=== PATIENT | female | born 1935 | race Caucasian/White ===

== ENCOUNTER 2016-07-18 17:05 | Inpatient (IN) ==
--- NOTE | 2016-07-18 19:44 | Emergency Department Note ---
Disposition Clinical Impression: Arterial insufficiency of lower extremity, Chronic wound of extremity, Acute on chronic kidney failure Disposition: Admitted As Inpatient Condition: Fair Forms: ED Satisfaction Letter General Adult HPI - General Chief complaint: ED Extremity Problem,Nontraumatic Stated complaint: cellulitis, low oxygen Time Seen by Provider: 07/18/16 19:19 Source: patient, family Mode of arrival: EMS Limitations: no limitations Nursing Notes Reviewed: Yes Vital Signs Reviewed: Yes - History of Present Illness HPI Narrative: 80-year-old female with long-standing history of chronic arterial insufficiency. She has had numerous rounds of outpatient oral antibiotics for cellulitis of bilateral lower extremities. She has had skin sloughing and ulcerations for multiple months according to the outpatient chart. She has seen Dr. Mcginnis on multiple visits to the most recent of which was in April. She is complaining of increasing pain in bilateral lower extremities with the right being worse than the left. She also complains of spreading of the ulcerations. She denies a current fever. She denies any current chest pain or shortness of breath. Radiation: non-radiation Pain Severity: moderate Pain Scale: 8 Consistency: constant Improves with: nothing Worsens with: movement Associated symptoms: Reports: denies other symptoms Treatments Prior to Arrival: none - Related Data Home Medications Medication Instructions Recorded Confirmed Albuterol Sulfate [Proair Hfa] 2 puff IH QID PRN 07/18/16 Amiodarone [Cordarone] 200 mg PO DAILY 07/18/16 07/18/16 Beclomethasone Diprop 80mcg [Qvar 1 puff IH BID 07/18/16 80 mcg] Clopidogrel [Plavix] 75 mg PO DAILY 07/18/16 07/18/16 Furosemide [Lasix] 80 mg PO DAILY 07/18/16 07/18/16 Metolazone [Zaroxolyn] 5 mg PO DAILY PRN 07/18/16 07/18/16 Metoprolol [Lopressor] 100 mg PO BID 07/18/16 07/18/16 Tramadol HCl [Ultram] 50 mg PO BID 07/18/16 07/18/16 Allergies Allergy/AdvReac Type Severity Reaction Status Date / Time No Known Allergies Allergy Unverified 02/25/15 15:26 All systems ED: reviewed and negative except as stated. Constitutional: Denies: fever Eyes: Denies: vision change ENT ED: Denies: throat pain Cardiovascular: Denies: chest pain Respiratory: Denies: cough Gastrointestinal: Denies: abdominal pain Genitourinary: Denies: dysuria Musculoskeletal: Denies: back pain Integumentary: Denies: rash Neurological: Denies: headache Past Medical History - Past Medical History Medical history: Reports: asthma, CHF, hyperlipidemia, hypertension, renal disease Psychiatric history: Reports: no psych history - Social History Smoking Status: Former smoker Smokeless Tobacco Status: No Alcohol use: Reports: none Drug use: Reports: none Physical Exam - General Limitations: no limitations General appearance: alert, in no apparent distress - Head Head exam: atraumatic - Eye Eye exam: Present: normal appearance - ENT ENT exam: normal exam, normal oropharynx - Neck Neck exam: Present: normal inspection - Chest Chest inspection: Present: normal inspection - Respiratory Respiratory exam: Present: normal lung sounds bilaterally. Absent: respiratory distress - Cardiovascular Cardiovascular exam: Present: regular rate, normal rhythm - Abdominal Exam Abdominal exam: Present: soft, Non-Tender - Extremities Exam Extremities exam: Present: other (Bilateral lower extremities are warm to the touch with cyanosis and erythema. Cyanosis is distal and erythema is proximal. The erythema goes proximally to the level of the mid calf. Cyanosis is mostly confined to the feet. There is diffuse ulcerations and blisters with sloughing. The right is warm to the touch. Both are boggy and neither are cold. Dorsal pedal pulse is not currently palpable.) - Neurological Exam Neurological exam: Present: alert, oriented X3 - Skin Skin exam: Present: warm, dry Course Course Narrative: My concern is that her cellulitis is not been responsive to outpatient therapy as she has such limited perfusion of her lower extremities. I have gone ahead and ordered an DEE DEE and we will go ahead and start antibiotics after I received her creatinine level. She will likely need admission with IV antibiotics and surgery or vascular consultation. She is afebrile and vital signs are otherwise unremarkable. - Reevaluation(s) Reevaluation #1: DEE DEE completely normal according to tech. Will admit for cellulitis and [facility]. Vital Signs Temperature 97.2 F L 07/18/16 17:17 Pulse Rate 99 07/18/16 17:17 Respiratory Rate 16 07/18/16 17:17 Blood Pressure 110/62 07/18/16 17:17 O2 Sat by Pulse Oximetry 97 07/18/16 17:17 Temperature 97.2 F L 07/18/16 17:17 Pulse Rate 99 07/18/16 17:17 Respiratory Rate 16 07/18/16 17:17 Blood Pressure 110/62 07/18/16 17:17 O2 Sat by Pulse Oximetry 97 07/18/16 17:17 Oxygen Delivery Oxygen Delivery Room Air Medical Decision Making - Medical Records Medical records reviewed: Yes I reviewed the patient's medical records. - Lab Data Lab results reviewed: Yes I reviewed the patient's lab results.
[2016-07-18] MEDS ORDERED: *HR* Morphine 2 MG/ML SYRINGE IV ONE (19:50)
[2016-07-18] MEDS ORDERED: Ondansetron 4 MG/2 ML VIAL IVP ONE (19:51)
[2016-07-18 20:00] LABS: Basophils % 0.5 %; Eosinophils # 0.2 K/mcL (0.0-0.6); Eosinophils % 3.6 %; Hematocrit 49.4 % (35.3-44.9); Hemoglobin 15.6 g/dL (11.5-15.4); Immature Granulocytes % 0.7 % (0-4); Immature Platelets 5.5 % (1.1-6.1); Lymphocytes % 16.6 %; Mean Corpuscular HGB Conc 31.6 g/dL (31.6-35.5); Mean Corpuscular Hemoglobin 29.9 pg (28.0-33.3); Mean Corpuscular Volume 94.8 fL (83.0-100.0); Mean Platelet Volume 11.4 fL (9.4-12.4); Monocytes # 0.7 K/mcL (0.0-1.3); Monocytes % 11.1 %; Neutrophils # 4.1 K/mcL (1.6-8.9); Nucleated Red Blood Cells 0.8 /100 WBC (0); Red Blood Count 5.21 M/mcL (3.82-4.97); Red Cell Distribution Width 17.9 % (11.5-14.5); Segmented Neutrophils % 67.5 %
[2016-07-18 20:07] LABS: Calcium 9.6 mg/dL (8.6-10.8); Potassium 4.1 mEq/L (3.5-4.5)
[2016-07-18] MEDS ORDERED: 0.9 % Sodium Chloride 500 ML IVC ONE (20:11)
[2016-07-18 20:17] LABS: Platelet Count 93 K/mcL (140-400)
[2016-07-18] MEDS ORDERED: Vancomycin 1,000 MG in D5% in Water 250 ML IVPB ONE (20:21)
[2016-07-18] MEDS ORDERED: Levofloxacin 750 MG/150 ML 750 MG/150 ML BAG IVPB ONE (20:21)
--- NOTE | 2016-07-18 20:34 | Emergency Department Note ---
Disposition Clinical Impression: Arterial insufficiency of lower extremity, Chronic wound of extremity, Acute on chronic kidney failure Disposition: Admitted As Inpatient Condition: Fair General Adult HPI - General Chief complaint: ED Extremity Problem,Nontraumatic Stated complaint: cellulitis, low oxygen Time Seen by Provider: 07/18/16 19:19 Source: patient, family Mode of arrival: EMS Limitations: no limitations - History of Present Illness Pain Scale: 8 Improves with: nothing Worsens with: movement Associated symptoms: Reports: denies other symptoms Treatments Prior to Arrival: none - Related Data Home Medications Medication Instructions Recorded Confirmed Albuterol Sulfate [Proair Hfa] 2 puff IH QID PRN 07/18/16 Amiodarone [Cordarone] 200 mg PO DAILY 07/18/16 07/18/16 Beclomethasone Diprop 80mcg [Qvar 1 puff IH BID 07/18/16 80 mcg] Furosemide [Lasix] 80 mg PO DAILY 07/18/16 07/18/16 Metolazone [Zaroxolyn] 5 mg PO DAILY PRN 07/18/16 07/18/16 Metoprolol [Lopressor] 100 mg PO BID 07/18/16 07/18/16 Tramadol HCl [Ultram] 50 mg PO BID 07/18/16 07/18/16 Aspirin [Ecotrin] 325 mg PO DAILY 07/19/16 07/19/16 Allergies Allergy/AdvReac Type Severity Reaction Status Date / Time No Known Allergies Allergy Unverified 02/25/15 15:26 Constitutional: Denies: fever Eyes: Denies: vision change ENT ED: Denies: throat pain Cardiovascular: Denies: chest pain Respiratory: Denies: cough Gastrointestinal: Denies: abdominal pain Genitourinary: Denies: dysuria Musculoskeletal: Denies: back pain Integumentary: Denies: rash Neurological: Denies: headache Past Medical History - Past Medical History Medical history: Reports: asthma, CHF, hyperlipidemia, hypertension, renal disease Psychiatric history: Reports: no psych history - Social History Smoking Status: Former smoker Smokeless Tobacco Status: No Alcohol use: Reports: none Drug use: Reports: none Physical Exam - General Limitations: no limitations General appearance: alert, in no apparent distress Course - Reevaluation(s) Reevaluation #1: I saw the patient with the resident, Dr. Avelar. Patient presents with redness and pain to bilateral lower extremities. On exam she has got bad cellulitis up and down the legs. She was anxious sent in by her PCP who has had her on oral antibiotics at home but she clearly is failing outpatient treatment. Further examination of the legs indicate to me that there is a significant arterial vascular insufficiency issue. This is known by the family and the patient but according to the family the patient has resisted definitive management thus far. She needs to be admitted the hospital for IV antibiotics because of failure of outpatient treatment of the cellulitis. This is obviously due to the vascular insufficiency. She will need to have that issue addressed while she is here in the hospital as well. Time: 20:34 Vital Signs Temperature 97.2 F L 07/18/16 17:17 Pulse Rate 99 07/18/16 17:17 Respiratory Rate 16 07/18/16 17:17 Blood Pressure 110/62 07/18/16 17:17 O2 Sat by Pulse Oximetry 97 07/18/16 17:17 Temperature 97.4 F L 07/20/16 10:50 Pulse Rate 78 07/20/16 10:50 Respiratory Rate 17 07/20/16 10:50 Blood Pressure 106/86 07/20/16 10:50 O2 Sat by Pulse Oximetry 98 07/20/16 10:50 Oxygen Delivery Oxygen Delivery Room Air Medical Decision Making - Lab Data Result diagrams: 07/20/16 05:45 07/20/16 05:45 Lab Results 07/18/16 07/18/16 07/18/16 Range/Units 19:40 19:40 19:40 WBC 6.1 (4.3-11.1) K/mcL RBC 5.21 H (3.82-4.97) M/mcL Hgb 15.6 H (11.5-15.4) g/dL Hct 49.4 H (35.3-44.9) % MCV 94.8 (83.0-100.0) fL MCH 29.9 (28.0-33.3) pg MCHC 31.6 (31.6-35.5) g/dL RDW 17.9 H (11.5-14.5) % Plt Count 93 L (140-400) K/mcL MPV 11.4 (9.4-12.4) fL Immature Gran % 0.7 (0-4) % Seg Neutrophils % 67.5 % Lymphocytes % 16.6 % Monocytes % 11.1 % Eosinophils % 3.6 % Basophils % 0.5 % Neutrophils # 4.1 (1.6-8.9) K/mcL Lymphocytes # 1.0 (0.6-4.6) K/mcL Monocytes # 0.7 (0.0-1.3) K/mcL Eosinophils # 0.2 (0.0-0.6) K/mcL Basophils # 0.0 (0.0-0.2) K/mcL Nucleated RBCs/100 WBC 0.8 H (0) /100 WBC Immature Plt Fraction 5.5 (1.1-6.1) % Sodium 143 (136-145) mEq/L Potassium 4.1 (3.5-4.5) mEq/L Chloride 102 (98-109) mEq/L Carbon Dioxide 26 (19-29) mEq/L BUN 65 H (7-20) mg/dL Creatinine 3.34 H (0.57-1.11) mg/dL Est GFR ( Amer) 16 L (> 60) Est GFR (Non-Af Amer) 13 L (> 60) BUN/Creatinine Ratio 19 (6-26) Glucose 121 H (70-99) mg/dL Calculated Osmolality 316 H (280-300) Lactic Acid 1.8 (0.5-2.2) mmol/L Calcium 9.6 (8.6-10.8) mg/dL Creatine Kinase (29-168) Units/L 07/18/16 Range/Units 21:40 WBC (4.3-11.1) K/mcL RBC (3.82-4.97) M/mcL Hgb (11.5-15.4) g/dL Hct (35.3-44.9) % MCV (83.0-100.0) fL MCH (28.0-33.3) pg MCHC (31.6-35.5) g/dL RDW (11.5-14.5) % Plt Count (140-400) K/mcL MPV (9.4-12.4) fL Immature Gran % (0-4) % Seg Neutrophils % % Lymphocytes % % Monocytes % % Eosinophils % % Basophils % % Neutrophils # (1.6-8.9) K/mcL Lymphocytes # (0.6-4.6) K/mcL Monocytes # (0.0-1.3) K/mcL Eosinophils # (0.0-0.6) K/mcL Basophils # (0.0-0.2) K/mcL Nucleated RBCs/100 WBC (0) /100 WBC Immature Plt Fraction (1.1-6.1) % Sodium (136-145) mEq/L Potassium (3.5-4.5) mEq/L Chloride (98-109) mEq/L Carbon Dioxide (19-29) mEq/L BUN (7-20) mg/dL Creatinine (0.57-1.11) mg/dL Est GFR ( Amer) (> 60) Est GFR (Non-Af Amer) (> 60) BUN/Creatinine Ratio (6-26) Glucose (70-99) mg/dL Calculated Osmolality (280-300) Lactic Acid (0.5-2.2) mmol/L Calcium (8.6-10.8) mg/dL Creatine Kinase 56 (29-168) Units/L Attestation Statement - Attestation Attestation: I, Dr. Hinkle, examined this patient [id number] and my medical decision- making was reviewed with Dr. Avelar, Resident Physician. I agree with the documented findings, disposition and treatment plan as described except to the extent set forth below. Please see my progress notes for details.
[2016-07-19] MEDS ORDERED: Naloxone 0.4 MG/ML INJ IVP PRN (00:40)
--- NOTE | 2016-07-19 01:14 | Internal Med History&Physical ---
Date of Encounter: 07/19/16 Time of Encounter: 00:35 Assessment and Plan (1) Acute on chronic kidney failure Current visit: Yes Status: Acute 1. Pt looks very dry clinically. 2. I will hold her diuretics. 3. I will hydrate her with IVF. 4. I will order renal ultrasound. 5. Consult nephrology. (2) Tricuspid valve regurgitation Current visit: Yes Status: Chronic 1. I suspect much/all of her lower extremity edema problems are due to sere TR with resultant right heart/atrial failure. 2. Will order ECHO. 3. Consider Cardiology consult if hospital course dictates. 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 I'm not sure what patient's baseline state is at home. 2. Nursing staff report that patient has history of dementia. 3. Patient also received Morphine in ER which may exacerbate symptoms. 4. Hold mind-altering mediations and try to address with family in the morning. 5. May also related to uremia/kidney failure. (4) Chronic wound of extremity Current visit: Yes Status: Chronic 1. I'm not convinced patient has cellulitis. 2. Will follow blood cultures and continue antibiotics for now. 3. Stop Vancomycin. I will treat with Zyvox and Zosyn for now. 4. Consult wound care. (5) DVT prophylaxis Current visit: Yes Status: Acute 1. Heparin SQ. Internal Medicine - H&P: HPI Chief complaint: BLE cellulitis -- not improving Admitted From: Emergency Dept Plans for Post Hospital Care: Home History of present illness: Ms. Beach is a 80 year old female who was brought in to the ER by her family after being referred by her PCP. Patient reportedly has been treated off and on for bilateral cellulitis without improvement for several weeks. She therefore came to the ER for evaluation and workup. In the ER, patient was noted to have bilateral lower extremity edema with purple/cyanotic feet. There was concern that she had ischemic feet, so DEE DEE's were performed. They were normal on preliminary reading as noted by ER staff. Blood cultures were drawn, patient received antibiotics, and she was subsequently admitted to the hospitalist service. Upon my assessment of the patient, she is confused, disoriented, hallucinating ( auditory), and also hard of hearing. I am unable to obtain any history from patient. Her family left from the ER and no family members are present. I reviewed old records and ER notes. Pt has a h/o CKD, and she also has h/o severe tricuspid regurgitation. According to old cardiology notes and [facility] notes (~ 2years ago), she was due to have Tricuspid Valve surgery/replacement. I see no records of such surgery and she does not have a sternotomy scar on exam. Thus, I suspect she did not have such surgery, unless it was done via heart catheterization. Pt is unable to provide history. Based upon these findings and history, I suspect patient has chronic right heart failure leading to hepatic congestion and lower extremity venous insufficiency and edema. Past Med Surg Social Fam HX - Past Medical History Source: old records reviewed Medical history: arthritis, asthma, CHF (right sided due to severe tricuspid regurgitation), hyperlipidemia, hypertension, renal disease Psychiatric history: anxiety, depression - Past Surgical History Surgical History: cholecystectomy - Social History Smoking Status: Former smoker Smokeless Tobacco Status: No Alcohol use: none Drug use: none Current living situation: Home, With Family - Family History Mother Family Member Ethnicity: Non- Living Status: Age at : 72 Cause of : cancer Hx Family Cancer: Yes Father Living Status: Age at : 70 Cause of : cirrhosis Internal Medicine - H&P: Meds Albuterol Sulfate [Proair Hfa] 2 puff IH QID PRN 07/18/16 [History] Amiodarone [Cordarone] 200 mg PO DAILY 07/18/16 [History] Beclomethasone Diprop 80mcg [Qvar 80 mcg] 1 puff IH BID 07/18/16 [History] Clopidogrel [Plavix] 75 mg PO DAILY 07/18/16 [History] Furosemide [Lasix] 80 mg PO DAILY 07/18/16 [History] Metolazone [Zaroxolyn] 5 mg PO DAILY PRN 07/18/16 [History] Metoprolol [Lopressor] 100 mg PO BID 07/18/16 [History] Tramadol HCl [Ultram] 50 mg PO BID 07/18/16 [History] Allergies No Known Allergies Allergy (Unverified 02/25/15 15:26) ROS unobtainable: due to mental status - Constitutional Vitals: Temp Pulse Resp BP Pulse Ox 97.7 F 66 16 137/54 94 L 07/18/16 23:37 07/18/16 23:37 07/18/16 23:37 07/18/16 23:37 07/18/16 23:37 General appearance: Present: A&O X 0, disheveled. Absent: answers questions appropriately Exam: pt looks very dehydrated - Head Head exam: Present: atraumatic, normal inspection - Expanded Head Exam Head exam expanded: Absent: abrasion, contusion, general tenderness - Eye Eye exam: Present: EOMI, normal appearance, PERRL. Absent: scleral icterus Pupils: Present: normal accommodation - ENT ENT exam: Present: mucous membranes dry, normal exam - Neck Neck exam general surgery: Present: full ROM, supple. Absent: lymphadenopathy, tenderness - Expanded Neck Exam Neck exam: Absent: carotid bruit - Respiratory Respiratory exam: Present: CTAB. Absent: accessory muscle use, chest wall tenderness, rales, rhonchi, wheezes - Cardiovascular Cardiovascular exam: Present: bradycardia (HR 50's - 60's), distant heart sounds , RRR, +S1, +S2, systolic murmur (grade II). Absent: diastolic murmur, JVD, rubs - GI/Abdominal GI/Abdominal exam: Absent: guarding, hepatomegaly, mass, rebound, splenomegaly, tenderness - Extremities Exam Extremities exam: Present: pedal edema, warm. Absent: joint swelling Additional comments: bilateral lower extremity edema, purplish hue to feet, blistering of skin ( pretibial area), 1+ pulses palpated in both feet - Neurological Exam Neurological exam: Present: altered Additional comments: hard of hearing; moves all four extremities; unable to assess due to confusion and hallucinations - Psychiatric Psychiatric exam: Present: agitated Additional comments: +auditory hallucinations; confusion; disorientation - Skin Skin exam: Present: dry, warm Additional comments: blue/purple feet with pretibial skin breakdown Internal Med - H&P Results - Labs CBC & Chem 7: 07/18/16 19:40 07/18/16 19:40
[2016-07-19] MEDS: 0.9 % Sodium Chloride 1,000 ML IVC SCH ×2 (01:41→12:56)
[2016-07-19] MEDS: Piperacillin/Tazobactam 3.375 GM in D5% in Water (Mini-Bag+) 100 ML IVPB SCH ×2 (05:24→17:53)
[2016-07-19 05:57] LABS: INR 1.4; Prothrombin Time 14.8 Seconds (9.4-12.1)
[2016-07-19 05:58] LABS: Basophils % 0.2 %; Eosinophils % 0.7 %
[2016-07-19 05:59] LABS: Eosinophils # 0.1 K/mcL (0.0-0.6); Hematocrit 50.6 % (35.3-44.9); Hemoglobin 15.8 g/dL (11.5-15.4); Immature Granulocytes % 0.5 % (0-4); Immature Platelets 4.8 % (1.1-6.1); Lymphocytes % 5.5 %; Mean Corpuscular HGB Conc 31.2 g/dL (31.6-35.5); Mean Corpuscular Hemoglobin 29.8 pg (28.0-33.3); Mean Corpuscular Volume 95.3 fL (83.0-100.0); Mean Platelet Volume 10.6 fL (9.4-12.4); Monocytes # 0.9 K/mcL (0.0-1.3); Monocytes % 6.9 %; Neutrophils # 11.7 K/mcL (1.6-8.9); Nucleated Red Blood Cells 0.6 /100 WBC (0); Red Blood Count 5.31 M/mcL (3.82-4.97); Segmented Neutrophils % 86.2 %
[2016-07-19 06:00] LABS: Lymphocytes # 0.8 K/mcL (0.6-4.6); Platelet Count 92 K/mcL (140-400)
[2016-07-19 06:24] LABS: Albumin 2.9 g/dL (3.5-5.0); Albumin/Globulin Ratio 0.7 (1.1-2.2); Bilirubin,Total 2.4 mg/dL (0.2-1.2); Calcium 9.2 mg/dL (8.6-10.8); Globulin 3.9 g/dL (2.4-3.5); Potassium 4.1 mEq/L (3.5-4.5); Total Protein 6.8 g/dL (6.0-8.3)
[2016-07-19] MEDS: *HR* Heparin 5,000 UNIT/ML VIAL SQ SCH ×2 (08:46→17:54)
[2016-07-19] MEDS: *HR* Amiodarone 200 MG TABLET PO SCH (08:47)
--- NOTE | 2016-07-19 11:30 | Nephrology Consult Note ---
<Alycia Almanzar - Last Filed: 07/19/16 16:23> Date of Encounter: 07/19/16 Time of Encounter: 11:30 Assessment and Plan (1) Acute kidney injury superimposed on chronic kidney disease Current Visit: Yes Status: Acute Patient with a baseline stage IV chronic kidney disease, baseline GFR approximately 30. Serum creatinine on admission 3.34. Clinically, patient appears dehydrated and unkept. Upon review of ECW, patient has had several rounds of antibiotics for outpatient treatment of cellulitis as well as episodes of hypotension. All of these underlying factors most likely etiology for the patient's current acute kidney injury. Serum uric acid 12.5, CK 169, FeUrea indicating prerenal etiology. Agree with gentle IV fluid rehydration. Continue a renal protective strategy and avoid nephrotoxic agents. Lasix discontinued at this time. Pharmacy to dose vancomycin. MRSA screen negative, consider stopping Vanc when possible. (2) Acute metabolic encephalopathy Current Visit: Yes Status: Acute (3) Chronic wound of extremity Current Visit: Yes Status: Chronic (4) Tricuspid valve regurgitation Current Visit: Yes Status: Chronic Qualifiers: Cardiac valve disease etiology: etiology unspecified Qualified Code(s): I07.1 - Rheumatic tricuspid insufficiency History of Present Illness - Reason for Consult Consult date: 07/19/16 Acute Kidney Injury, Chronic Kidney Disease Requesting physician: Chad Zamora - Chief Complaint AURORA on CKD stage IV - History of Present Illness Ms. Beach is a 80-year-old female with a past medical history of chronic kidney disease stage IV, severe tricuspid regurgitation, coronary artery disease , hyperlipidemia, hypertension, and congestive heart failure with preserved ejection fraction who presented to the emergency department at the request of her PCP for possible lower extremity cellulitis. Per report, patient has been treated off and on for bilateral lower extremity cellulitis without improvement for quite some time. Workup in the emergency department included ABIs which were within normal limits, and labs which revealed an acute kidney injury with a serum creatinine of 3.34. Patient was admitted for acute on chronic kidney disease, acute metabolic encephalopathy, and lower extremity cellulitis. Patient does have a history of chronic kidney disease stage IV and follows with Dr. Ramos in the outpatient setting. Her baseline GFR is approximately 30. Upon my assessment of the patient she does appear slightly confused although I am unsure of her baseline mental status. She is really unable to provide an accurate history and there is no family at the bedside at this time. She is currently being treated with vancomycin and Zosyn for her bilateral lower extremity cellulitis. Past Med Surg Social Fam HX - Past Medical History Medical history: arthritis, asthma, CHF (right sided due to severe tricuspid regurgitation), hyperlipidemia, hypertension, renal disease Psychiatric history: anxiety, depression - Past Surgical History Surgical History: cholecystectomy - Social History Smoking Status: Former smoker Smokeless Tobacco Status: No Alcohol use: none Drug use: none - Family History Mother Family Member Ethnicity: Non- Living Status: Age at : 70 Cause of : cancer Hx Family Cancer: Yes Father Living Status: Age at : 70 Cause of : cirrhosis Medications and Allergies Albuterol Sulfate [Proair Hfa] 2 puff IH QID PRN 07/18/16 [History] Amiodarone [Cordarone] 200 mg PO DAILY 07/18/16 [History] Beclomethasone Diprop 80mcg [Qvar 80 mcg] 1 puff IH BID 07/18/16 [History] Furosemide [Lasix] 80 mg PO DAILY 07/18/16 [History] Metolazone [Zaroxolyn] 5 mg PO DAILY PRN 07/18/16 [History] Metoprolol [Lopressor] 100 mg PO BID 07/18/16 [History] Tramadol HCl [Ultram] 50 mg PO BID 07/18/16 [History] Aspirin [Ecotrin] 325 mg PO DAILY 07/19/16 [History] Allergies No Known Allergies Allergy (Unverified 02/25/15 15:26) Review of Systems ROS unobtainable: due to mental status Exam - Vital Signs Vital signs: Initial Vital Signs Temp Pulse Resp BP Pulse Ox 97.2 F L 99 16 110/62 97 07/18/16 17:17 07/18/16 17:17 07/18/16 17:17 07/18/16 17:17 07/18/16 17:17 Vital Signs - Last 8 Hours Temp Pulse Resp BP Pulse Ox 07/19/16 07:00 97.5 F L 50 16 109/67 95 07/19/16 04:07 97.0 F L 51 14 118/63 98 Intake and Output 07/18/16 07/19/16 07/19/16 23:59 07:59 15:59 Intake Total 300 / 300 644 / 644 Balance 300 / 300 644 / 644 Intake: IV Fluids 300 / 300 644 / 644 0.9 % Sodium Chloride 1, 644 / 644 000 ML @ 100 mls/hr IVC . Q10H [facility] Rx#:[id number] Zyvox 600mg/300mL 600 mg 300 / 300 In 300 ml @ 150 mls/hr IVPB Q12HR [facility] Rx#: [id number] Oral 0 / 0 - General Appearance Exam: General: Patient is alert and in no acute distress, confused, appears dehydrated HEENT: Normocephalic atraumatic, pupils are equal round and reactive to light and accommodation, tympanic membrane is intact, nares is patent, mucous membranes dry, throat is not injected, no JVD, trachea is midline Cardiovascular: Regular rate and rhythm, grade 2 systolic murmur noted Respiratory: Lungs are clear to auscultation bilaterally, no wheezing, rhonchi, rales Abdomen: Soft, nontender, nondistended, positive bowel sounds in all 4 quadrants Extremities: Bilateral lower extremity edema, chronic venous stasis changes noted, pretibial blistering of skin with multiple areas of scabbing Neuro: Nonfocal exam Results - Lab Results 07/19/16 05:35 07/19/16 05:35 Most recent lab results Calcium 9.2 mg/dL (8.6-10.8) 07/19/16 05:35 Magnesium 2.0 mg/dL (1.6-2.6) 07/19/16 05:35 Consult Discharge Plan - Plan Referrals: Maulik Handley MD [Primary Care Provider] - <Julio C Nogueira - Last Filed: 07/20/16 23:57> Date of Encounter: 07/19/16 Exam - Vital Signs Vital signs: Initial Vital Signs Temp Pulse Resp BP Pulse Ox 97.2 F L 99 16 110/62 97 07/18/16 17:17 07/18/16 17:17 07/18/16 17:17 07/18/16 17:17 07/18/16 17:17 Vital Signs - Last 8 Hours Temp Pulse Resp BP Pulse Ox 07/20/16 21:18 97.4 F L 50 14 97/64 95 Intake and Output 02/08/0407/20/16 07/20/16 07:59 15:59 23:59 Intake Total 1449 / 1449 1220 / 1220 360 / 360 Output Total 0 / 0 Balance 1449 / 1449 1220 / 1220 360 / 360 Intake: IV Fluids 1049 / 1049 1100 / 1100 0.9 % Sodium Chloride 1, 799 / 799 1000 / 1000 000 ML @ 100 mls/hr IVC . Q10H [facility] Rx#:[id number] Zosyn 3.375 GM In 100 / 100 Dextrose 5% (Minibag+) 100 ML 100 ML @ 25 mls/hr IVPB Q12HR [facility] Rx#: [id number] Vancocin 1,250 MG In 250 / 250 Dextrose 5% 250 ML @ 166. 67 mls/hr IVPB ONCE ONE Rx#:[id number] Oral 400 / 400 120 / 120 360 / 360 Output: Urine 0 / 0 Other: Meal Lunch Dinner Percent of Meal Consumed 50% 75% # Voids 1 # Urine Diapers 0 Results - Lab Results 07/20/16 05:45 07/20/16 05:45 Most recent lab results Calcium 8.6 mg/dL (8.6-10.8) 07/20/16 05:45 Magnesium 2.4 mg/dL (1.6-2.6) 07/20/16 05:45 Urine Creatinine 98 mg/dL 07/19/16 11:58 Urine Sodium < 20.0 mEq/L 07/19/16 11:58 - Attending Attestation I examined this patient and my medical decision-making was reviewed with the QUALIFICATION ENGINEER/PA/Advanced Practice Nurse/Resident Physician. I agree with the documented findings, disposition and treatment plan as described except to the extent set forth below. Pt seen and examined known to me from outpatient followup on her stage 3/4 CKD now admitted with AURORA on diuretics likely pre-renal. Agree with plan as set forth.
[2016-07-19 11:47] LABS: Uric Acid 12.5 mg/dL (2.6-6.0)
--- NOTE | 2016-07-19 11:54 | ECHO - Doppler Report ---
Echocardiogram Name: Marina Beach Date of Study: 07/19/2016 Date: 1935 Ht: 62.0 in Medical Record#: [id number] Age: 80 Wt: 211.0 lb Gender: Female BSA: 1.96 Order #: [id number] Location: [facility] Room #: 3A47 Reading Physician: Nathaniel Hare DO, ROSALEE, MUNDO CHOI Sanding Machine Operator Or Tender: Krystal Villagran Ordering Physician: Chad Zamora MD Primary Physician: Maulik Handley M.D. Indications: Arrhythmia Impressions: LVEF 60%. Small LV chamber size. Normal LV wall thickness and function. Mild left ventricular diastolic dysfunction. Atypical septal motion consistent with bundle branch block. Interventricular septum is flattened suggestive of RV pressure-volume overload. Severely dilated right ventricle with normal appearing function. Severely dilated right atrium. Poor coaptation of tricuspid valve leaflets with resultant severe tricuspid regurgitation. Moderate pulmonary hypertension. Estimated RVSP is 45-50 mmHg. Presumed RA pressure is 15-20 mmHg. Patient refused to complete full examination. Left Ventricular Wall Motion: Rest Echo Findings All wall segments showed normal motion. Findings: Study Quality * Technically sub-optimal due to clinical status. ECG Findings * Sinus rhythm with BBB. Left Ventricle * LVEF 60%. * Small LV chamber size. Normal LV wall thickness and function. * Mild left ventricular diastolic dysfunction. * Atypical septal motion consistent with bundle branch block. * Interventricular septum is flattened suggestive of RV pressure-volume overload. Right Ventricle * Severly dilated right ventricle with normal appearing function. Left Atrium * Normal left atrial size. Right Atrium * Severely dilated right atrium. Interatrial Septum * Interatrial septum not well evaluated. Aortic Valve * Mildly sclerotic aortic valve leaflets. * No aortic stenosis. * Trileaflet aortic valve. * No aortic regurgitation. Mitral Valve * Normal mitral valve structure and function. * No mitral stenosis. * Trace mitral regurgitation. Tricuspid Valve * Normal tricuspid valve structure. * Severe tricuspid regurgitation. * Moderate pulmonary hypertension. * Estimated RVSP is 45-50 mmHg. * Estimated RA pressure is 15-20 mmHg. Pulmonic Valve * Pulmonic valve is not well visualized. * No pulmonic regurgitation. Aorta * Normally sized aortic root. Pericardium * The pericardium appears normal. IVC * The IVC is not well evaluated. Pulmonary Artery * Normal visualized portions of the main pulmonary artery. History Hypertension Hypercholesteremia Congestive Heart Failure Valvular Disease 11/19/2014 a Previous Echo was performed. Measurements: BP: 118/ 63 2D Normal Values RVIDd: 5.80 cm <2.7 cm IVSd: 1.10 cm 0.6 - 1.0 cm LVIDd: 2.70 cm 3.7 - 5.6 cm LVPWd: 1.10 cm 0.6 - 1.1 cm LVIDs: 1.60 cm 1.5 - 3.6 cm AO: 2.90 cm < 4.0 cm LA: 3.00 cm 2.0 - 4.0cm %FS: 40.70 cm >25 % LA volume: 43 Mitral Valve Peak E:.72 m/sec Peak A:.81 m/sec E/A Ratio:0.9 Peak E' Lat Lauro:7.12 cm/s Peak E' Med Lauro:6.24 cm/s E/E' Lat Ratio:10.1 E/E' Med Ratio:11.6 Tricuspid Valve TV Regurg Peak Grad: 30.00mmHg TV Regurg Peak Lauro: 2.74m/sec Updated by Nathaniel Hare DO, ROSALEE, STEPH, MUNDO on 07/19/2016 11:45:55 AM electronically signed on 07/19/2016 11:47:42 AM with status of Final Wall Motion Augustin: 1=Normal, 2=Hypokinesis, 3=Akinesis, 4=Dyskinesis, 5=Aneurysmal, 6=Hyperkinetic, X=Not Visualized (Blank)=Missing
[2016-07-19] MEDS ORDERED: Vancomycin 1 EACH in D5% in Water 250 ML IVPB SCH (12:00)
[2016-07-19 12:50] LABS: Bilirubin,Urine Negative (Negative); Blood,Urine Negative (Negative); Clarity,Urine Clear (Clear); Color,Urine Yellow (Yellow); Glucose,Urine (UA) Normal (Normal); Ketones,Urine Negative (Negative); Leukocyte Esterase,Urine Negative (Negative); Nitrite,Urine Negative (Negative); Protein,Urine Negative (Neg-Trace); Specific Gravity,Urine 1.018 (1.010-1.025); Urobilinogen,Urine Normal (Normal)
[2016-07-19] MEDS: Aspirin 325 MG TABLET PO SCH (12:54)
[2016-07-19] MEDS: Acetaminophen 325 MG TABLET PO PRN ×2 (13:05→20:12)
[2016-07-19 14:07] LABS: Creatinine,Urine 98 mg/dL; Sodium, Urine < 20.0 mEq/L
--- NOTE | 2016-07-19 14:33 | Arterial Study Report ---
LE Arterial Physiologic Study Patient Name:Marina Beach Order Number:[id number] Procedure Date:07/18/2016 Date:8Age:80 yrs Gender:Female Lt BP:85 / mmHg Location:[facility] ED Room #: ER10 Side Door Worker:Laura Quintana MICHELLE Referring MD:Murphy Avelar DO brim cutter:None Reading MD:Jared Ivy MD Primary Indications:Non-healing Wounds Risk Factors Yes/No Hypertension Yes Hypercholesterolemia Yes Smoker Previous Yes Impressions: 1) Bilateral lower extremities waveform demonstrates normal hemodynamics. 2) bilateral Ankle Brachial Index is normal. 3) Overall Impression: Arterial hemodynamics are well maintained at rest. Recommendations: Preliminary given to Dr Avelar in ED. Test completed on 07/18/2016 at 9:20:00 pm. Findings LE Arterial Physiologic Exam: PVR: Right: The PVR waveforms are mildly diminished in the right . Left: The PVR waveforms are moderately diminished in the left . Prior Study: No significant change compared to prior study dated: 08/27/2015. Segmental Pressures Side Location Pressure Index Result Right Posterior Tibial 119 1.40 Mildly Diminished Right Dorsalis Pedis 112 1.32 Mildly Diminished Left Posterior Tibial 120 1.41 Mildly Diminished Left Dorsalis Pedis 119 1.40 Mildly Diminished Ankle Brachial Index Right Systolic Diastolic EDE DEE Brachial 1.40 Dorsalis Pedis 112 1.32 Posterior Tibial 119 1.40 Left Systolic Diastolic DEE DEE Brachial 85 1.41 Dorsalis Pedis 119 1.40 Posterior Tibial 120 1.41 Updated by Jared Ivy MD on 07/19/2016 2:06:24 PM with Status of Final electronically signed on 07/19/2016 2:06:38 PM with status of Final
--- NOTE | 2016-07-19 15:12 | Event Note ---
<Karthik Morris Rosas - Last Filed: 07/19/16 16:37> Date of Encounter: 07/19/16 Time of Encounter: 09:30 Mrs. Beach has been seen and evaluated the patient bedside this morning, she is awake, confused, yet is able to respond to some questions. She says that both her lower extremities hurt to touch and feel cold. She is not able to explain how long she has had redness, blisters or ulcers on her feet. She said that they are hurting to touch and even a blanket on them hurts a lot. She denies any blurry vision, chest pain, chest pressure, shortness of breath, abdominal pain, nausea, vomiting or diarrhea. I had the opportunity to talk with the patient's daughter this afternoon who is a patient bedside she was concerned about her mother's lower legs. Apparently Mrs. Beach lives with her and her daughter is concerned that she would return home and her father would be unable to care for her mother. Apparently she had been progressively getting worse over the past week or two and her mother would not seek treatment. She is concerned that her mother might have dementia and that she had been waking up in the middle the night thinking it was breakfast time or she needs to be somewhere. She also has been mixing up her days and nights at home. According to her daughter she has had chronic lower extremity edema and dermis skin changes but the reddening, blisters and breaks in her skin are all new. She discussed her mother's tricuspid valve and said that they had met with a surgeon in [place] who said that she would not be an operable case. She is greatly concerned about her mother keeping her legs and care for her status post discharge. Vitals: Temperature 97.4, heart rate 60, respiratory rate 16, blood pressure 109 /67, O2 sats 95 Laboratory results: White blood cell count 13.6, hemoglobin 15.8, hematocrit 50.6, MCV 95.3, platelets 92, neutrophils 11.7, INR 1.4, sodium 144, potassium 4.1, creatinine 3.30, osmolality 316, glucose 109, uric acid is 12.5 creatinine kinase is 169 Lower extremity arterial studies demonstrate arterial hemodynamics are well maintained at rest. DEE DEE bilateral: Right DEE DEE 1.40, left DEE DEE 1.41 Significant physical exam: Mental status altered, interactive, in no acute distress, hard of hearing in the left ear Cardiac: Regular rate and rhythm Respiratory clear to auscultation all lung myers Abdomen is soft nontender to palpation positive bowel sounds Lower extremities: Bilateral lower extremity edema with erythema up to knees bilaterally, there are diffuse breaks in the skin with ulceration on the anterior shins bilateral with dermal hemorrhaging on the toes. There is a large blister with yellow fluid on the dorsal aspect of the left foot. Her skin is very tender light touch on bilateral lower extremities. A/P: 1. Bilateral lower extremity infection: Ms. Beach has a history of chronic lower extremity edema and venous stasis. She has had worsening in her erythema and formation of cracks in her skin and blister formations. She is also becoming more confused over the last few days. She had a recent wound culture that grew enterococcus. Blood cultures results are pending. Current antibiotic coverage includes vancomycin and Zosyn. Wound cultures of all the patient's care. DEE DEE And completed as discussed above. Venous Doppler will without signs of clot. CT of the bilateral lower extremities has been ordered. Plan: - Continue current antibiotic coverage with vancomycin and Zosyn - Awaiting final results of blood cultures. - CT of the lower extremities has been completed awaiting results. - Continue wound care 2. AURORA on CKD stage IV: Ms. Beach demonstrates acute on chronic kidney injury. She has a baseline stage IV CKD, urine osmolality is 316, uric acid is 12.5 and creatinine kinase is 169. Plan: - Continue current fluids rehydration - Nephrology is following the patient, retroperitoneal ultrasound does not show any signs of hydronephrosis - Continue to monitor kidney function with a.m. labs. 3. Metabolic Encephalopathy: Likely secondary to acute kidney injury, dehydration and lower extremity wounds. There is concerned that she may be developing an underlying dementia. Her mental status is worse then a few days ago which is likely encephalopathic changes on top of her baseline mental status. Plan: - Continue treating underlining medical conditions. - Monitor for improvement of mental status. 4. Tricuspid valve regurgitation: Patient has a known history of tricuspid valve regurgitation and had been evaluated in [place]. She has currently been followed by [facility]. Likely contributed to her bilateral lower extremity edema. Echocardiogram was completed with results pending. Continue to monitor. 5. DVT prophylaxis: Subcutaneous heparin <Tenzin Barrios - Last Filed: 07/19/16 17:51> Date of Encounter: 07/19/16 I examined this patient and my medical decision-making was reviewed with the Resident Physician. I agree with the documented findings, disposition and treatment plan as described except to the extent set forth below. Continue with iv antibioitcs. CT ordered for clinical suspicion of osteomyelitis. H/O MR, conservative management as per ECW notes. On aspirin 325, which has been resumed today. Nephro input.
[2016-07-19] MEDS: Silvasorb 44.4 ML TUBE TP SCH (17:39)
[2016-07-19] MEDS ORDERED: traMADol 50 MG TABLET PO SCH (23:30)
[2016-07-20] MEDS: 0.9 % Sodium Chloride 1,000 ML IVC SCH ×2 (02:08→14:48)
[2016-07-20] MEDS ORDERED: Vancomycin 1,250 MG in D5% in Water 250 ML IVPB ONE (02:30)
[2016-07-20] MEDS: Piperacillin/Tazobactam 3.375 GM in D5% in Water (Mini-Bag+) 100 ML IVPB SCH (06:26)
[2016-07-20] MEDS: *HR* Heparin 5,000 UNIT/ML VIAL SQ SCH ×2 (06:27→18:44)
[2016-07-20 06:29] LABS: Immature Granulocytes % 0.6 % (0-4); Mean Platelet Volume 11.6 fL (9.4-12.4)
[2016-07-20 06:31] LABS: Basophils % 0.4 %; Eosinophils # 0.3 K/mcL (0.0-0.6); Eosinophils % 3.7 %; Hematocrit 46.7 % (35.3-44.9); Hemoglobin 14.7 g/dL (11.5-15.4); Immature Platelets 5.4 % (1.1-6.1); Lymphocytes # 0.9 K/mcL (0.6-4.6); Lymphocytes % 12.5 %; Mean Corpuscular HGB Conc 31.5 g/dL (31.6-35.5); Mean Corpuscular Hemoglobin 30.3 pg (28.0-33.3); Mean Corpuscular Volume 96.3 fL (83.0-100.0); Monocytes # 0.7 K/mcL (0.0-1.3); Monocytes % 10.1 %; Neutrophils # 5.2 K/mcL (1.6-8.9); Nucleated Red Blood Cells 0.8 /100 WBC (0); Platelet Count 69 K/mcL (140-400); Red Blood Count 4.85 M/mcL (3.82-4.97); Segmented Neutrophils % 72.7 %
[2016-07-20 07:06] LABS: Albumin 2.5 g/dL (3.5-5.0); Albumin/Globulin Ratio 0.7 (1.1-2.2); Calcium 8.6 mg/dL (8.6-10.8); Globulin 3.6 g/dL (2.4-3.5); Total Protein 6.1 g/dL (6.0-8.3)
[2016-07-20 07:08] LABS: Platelet Estimate Decreased (Normal)
[2016-07-20 07:09] LABS: Anisocytosis 1+ (Not Present); Burr Cells 1+ (Not Present); Magnesium 2.4 mg/dL (1.6-2.6); Ovalocytes 1+ (Not Present)
[2016-07-20 07:11] LABS: Potassium 4.4 mEq/L (3.5-4.5)
[2016-07-20] MEDS: Aspirin 325 MG TABLET PO SCH (09:01)
[2016-07-20] MEDS: *HR* OxyCODONE/APAP 5/325 TABLET PO PRN ×2 (09:01→14:49)
[2016-07-20] MEDS: *HR* Amiodarone 200 MG TABLET PO SCH (09:02)
[2016-07-20] MEDS ORDERED: Aminoglycoside Consult 1 EACH MC ONE (09:17)
--- NOTE | 2016-07-20 10:50 | Nephrology Progress Note ---
<Alycia Almanzar Gilberto - Last Filed: 07/20/16 13:19> Date of Encounter: 07/20/16 Time of Encounter: 10:30 - Assessment and Plan (1) Acute kidney injury superimposed on chronic kidney disease Current Visit: Yes Status: Acute Patient with baseline stage IV chronic kidney disease, baseline GFR approximately 30. Serum creatinine on admission 3.34, today 3.27. Likely prerenal etiology. FENa further confirms our suspicion of prerenal pathology. Continue gentle IV fluid. We will recheck serum uric acid now that the patient is being rehydrated. No underlying history of gout. Continue a renal protective strategy. No indication for renal replacement therapy at this time. (2) Acute metabolic encephalopathy Current Visit: Yes Status: Acute (3) Chronic wound of extremity Current Visit: Yes Status: Chronic (4) Tricuspid valve regurgitation Current Visit: Yes Status: Chronic Qualifiers: Cardiac valve disease etiology: etiology unspecified Qualified Code(s): I07.1 - Rheumatic tricuspid insufficiency Subjective Interval history: Patient seen and examined at the bedside. More awake and interactive today. Continues to complain of pain in her bilateral lower extremities. Retroperitoneal ultrasound was within normal limits and lower extremity CAT scan reveals possible cellulitis. Patient has no other complaints or concerns at this time. Objective - Vital Signs Vital signs: Vital Signs Temp Pulse Resp BP Pulse Ox 07/20/16 06:44 98.8 F 89 16 101/75 97 07/20/16 03:20 97.6 F 48 14 89/61 100 07/19/16 21:38 97.4 F L 50 14 93/67 97 07/19/16 17:00 97.7 F 50 16 107/66 99 07/19/16 12:00 97.4 F L 60 18 125/72 95 Intake and Output 07/19/16 07/20/16 07/20/16 23:59 07:59 15:59 Intake Total 301 / 301 1449 / 1449 681 / 681 Output Total 0 / 0 Balance 301 / 301 1449 / 1449 681 / 681 Intake: IV Fluids 301 / 301 1049 / 1049 681 / 681 0.9 % Sodium Chloride 1, 201 / 201 799 / 799 681 / 681 000 ML @ 100 mls/hr IVC . Q10H [facility] Rx#:[id number] Zosyn 3.375 GM In 100 / 100 Dextrose 5% (Minibag+) 100 ML 100 ML @ 25 mls/hr IVPB Q12HR [facility] Rx#: [id number] Vancocin 1,250 MG In 250 / 250 Dextrose 5% 250 ML @ 166. 67 mls/hr IVPB ONCE ONE Rx#:[id number] Oral 400 / 400 Output: Urine 0 / 0 - General Appearance Exam: General: Patient is alert and in no acute distress HEENT: Normocephalic atraumatic, pupils are equal round and reactive to light and accommodation, tympanic membrane is intact, nares is patent, mucous membranes moist, throat is not injected, no JVD, trachea is midline Cardiovascular: Regular rate and rhythm, grade 2 systolic murmur Respiratory: Lungs are clear to auscultation bilaterally, no wheezing, rhonchi, rales Abdomen: Soft, nontender, nondistended, positive bowel sounds in all 4 quadrants Extremities: Bilateral lower extremity 1-2+ edema, chronic venous stasis changes noted, pretibial blistering of skin with multiple areas of scabbing Neuro: A&Ox2, speech is appropriate, cranial nerves II through XII are normal as tested - Lab 07/20/16 05:45 07/20/16 05:45 Most recent lab results Calcium 8.6 mg/dL (8.6-10.8) 07/20/16 05:45 Magnesium 2.4 mg/dL (1.6-2.6) 07/20/16 05:45 Urine Creatinine 98 mg/dL 07/19/16 11:58 Urine Sodium < 20.0 mEq/L 07/19/16 11:58 Consult Discharge Plan - Plan Referrals: Maulik Handley MD [Primary Care Provider] - <Julio C Nogueira - Last Filed: 07/21/16 00:34> Date of Encounter: 07/20/16 Objective - Vital Signs Vital signs: Vital Signs Temp Pulse Resp BP Pulse Ox 07/20/16 21:18 97.4 F L 50 14 97/64 95 07/20/16 10:50 97.4 F L 78 17 106/86 98 07/20/16 06:44 98.8 F 89 16 101/75 97 07/20/16 03:20 97.6 F 48 14 89/61 100 Intake and Output 07/20/16 07/20/16 07/21/16 15:59 23:59 07:59 Intake Total 1220 / 1220 360 / 360 Balance 1220 / 1220 360 / 360 Intake: IV Fluids 1100 / 1100 0.9 % Sodium Chloride 1, 1000 / 1000 000 ML @ 100 mls/hr IVC . Q10H [facility] Rx#:[id number] Zosyn 3.375 GM In 100 / 100 Dextrose 5% (Minibag+) 100 ML 100 ML @ 25 mls/hr IVPB Q12HR [facility] Rx#: [id number] Oral 120 / 120 360 / 360 Other: Meal Lunch Dinner Percent of Meal Consumed 50% 75% # Voids 1 # Urine Diapers 0 - Lab 07/20/16 05:45 07/20/16 05:45 Most recent lab results Calcium 8.6 mg/dL (8.6-10.8) 07/20/16 05:45 Magnesium 2.4 mg/dL (1.6-2.6) 07/20/16 05:45 Urine Creatinine 98 mg/dL 07/19/16 11:58 Urine Sodium < 20.0 mEq/L 07/19/16 11:58 - Attending Attestation I examined this patient and my medical decision-making was reviewed with the MULTIPLE SPINDLE SCREW MACHINE OPERATOR/PA/Advanced Practice Nurse/Resident Physician. I agree with the documented findings, disposition and treatment plan as described except to the extent set forth below. Pt seen and examined with SCr slightly improved, continue IVF for now. No indication for CIGAR HEAD PEGGER at this point. Discussed case with son as well. Will check SANTA, complements and cryoglobin given LE issues to rule out vasculitis
[2016-07-20] MEDS: Silvasorb 44.4 ML TUBE TP SCH (14:52)
--- NOTE | 2016-07-20 16:51 | Internal Med Progress Note ---
Addendum entered and electronically signed by Karthik Morris, 07/20 20:41: Cardiac exam: grade 3/6 Tricuspid systolic murmur. Original Note: <Karthik Morris - Last Filed: 07/20/16 16:49> Date of Encounter: 07/20/16 Time of Encounter: 09:00 - Assessment and plan (1) Lower extremity cellulitis Current Visit: Yes Status: Acute Assessment and plan: Ms. Beach has a history of chronic lower extremity edema and venous stasis. She has had worsening in her erythema and formation of cracks in her skin and blister formations. She is also becoming more confused over the last few days. She had a recent wound culture that grew enterococcus. Blood cultures results are pending. Current antibiotic coverage includes vancomycin and Zosyn has been discontinued. Wound cultures of all the patient's care. DEE DEE And completed as discussed above. Venous Doppler will without signs of clot. CT of the bilateral lower extremities was negative for LE osteomyelitis with findings diffuse subcutaneous fat stranding and thickening of bilateral extremities compatable with lymphedema versus cell. Skin blistering along the dorsum of the left frontal foot. Plan: - Continue current antibiotic coverage with vancomycin - Awaiting final results of blood cultures. - Continue wound care Qualifiers: Qualified Code(s): L03.119 - Cellulitis of unspecified part of limb (2) Lower extremity edema Current Visit: Yes Status: Acute Assessment and plan: patient has a history of chronic lower extremity edema likely secondary to severe tricuspid regurgitation and CHF. Qualifiers: Qualified Code(s): R60.0 - Localized edema (3) Acute kidney injury superimposed on chronic kidney disease Current Visit: Yes Status: Acute Assessment and plan: Ms. Beach demonstrates acute on chronic kidney injury. She has a baseline stage IV CKD Plan: - Continue current fluids rehydration - Nephrology is following the patient, retroperitoneal ultrasound does not show any signs of hydronephrosis - Continue to monitor kidney function with a.m. labs. (4) Tricuspid valve regurgitation Current Visit: Yes Status: Chronic Assessment and plan: Patient has a known history of tricuspid valve regurgitation and had been evaluated in [place]. She has currently been followed by [facility]. Likely contributed to her bilateral lower extremity edema. Echocardiogram was completed with results pending. Continue to monitor. 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 - Subjective Interval history: Ms. Beach has been seen and evaluated the patient bedside was 20. She is awake alert she is interacting. Her complaint is bilateral lower extremity tenderness to touch, blankets. She also says that her feet feel cold which she said it has been an ongoing symptom for a while. She denies any blurry vision headaches, neck pains, shortness of breath, palpitations, chest pain, abdominal pains, nausea vomiting diarrhea or constipation. She feels that her lower extremity tenderness is actually improved compared to yesterday but she is concerned about the weeping from her lower extremities. She is also concerned that her will not be able to care for her if and when we discharge her. - Constitutional Vitals: Temp Pulse Resp BP Pulse Ox 97.4 F L 78 17 106/86 98 07/20/16 10:50 07/20/16 10:50 07/20/16 10:50 07/20/16 10:50 07/20/16 10:50 General appearance: Absent: answers questions appropriately Exam: Mental status altered, interactive, in no acute distress, hard of hearing in the left ear Cardiac: Regular rate and rhythm Respiratory clear to auscultation all lung myers Abdomen is soft nontender to palpation positive bowel sounds Lower extremities: Bilateral lower extremity edema with erythema up to knees bilaterally, there are diffuse breaks in the skin with ulceration on the anterior shins bilateral with dermal hemorrhaging on the toes. There is a large blister with yellow fluid on the dorsal aspect of the left foot. Her skin is very tender light touch on bilateral lower extremities. Wound care dressing was removed for LE examination and changed after. Internal Medicine: Result - Labs CBC & Chem 7: 07/20/16 05:45 07/20/16 05:45 Labs: Short CBC 07/20/16 Range/Units 05:45 WBC 7.1 (4.3-11.1) K/mcL Hgb 14.7 (11.5-15.4) g/dL Hct 46.7 H (35.3-44.9) % Plt Count 69 L (140-400) K/mcL Neutrophils # 5.2 (1.6-8.9) K/mcL BMP 07/20/16 05:45 Sodium 142 Potassium 4.4 Chloride 106 Carbon Dioxide 24 BUN 66 H Creatinine 3.27 H Glucose 92 Calcium 8.6 Liver Function 07/20/16 Range/Units 05:45 Total Bilirubin 2.0 H (0.2-1.2) mg/dL AST 49 H (5-34) Units/L ALT 19 (0-55) Units/L Alkaline Phosphatase 87 (38-126) Units/L Albumin 2.5 L (3.5-5.0) g/dL - ABG Interpretation ABG results: PT/INR, D-dimer PT 14.8 Seconds (9.4-12.1) H 07/19/16 05:35 - Impressions Impressions Retroperitoneum Ultrasound 07/19/16 15:00 IMPRESSION: No hydronephrosis. D/ / 07/19/2016 16:57:56 Darien Uriostegui MD / earcirilo Interpreting Provider: Darien Uriostegui MD Lower Extremity CT 07/19/16 16:00 IMPRESSION: 1. No CT evidence of osteomyelitis in the bilateral lower extremities. 2. Diffuse subcutaneous fat stranding and skin thickening of the bilateral lower extremities compatible with lymphedema versus cellulitis. Skin blistering along the dorsum of the left forefoot. D/ / Nathaniel Hutchins MD / Nathaniel Hutchins MD Interpreting Provider: Nathaniel Hutchins MD Lower Extremity CT 07/19/16 16:00 IMPRESSION: 1. No CT evidence of osteomyelitis in the bilateral lower extremities. 2. Diffuse subcutaneous fat stranding and skin thickening of the bilateral lower extremities compatible with lymphedema versus cellulitis. Skin blistering along the dorsum of the left forefoot. D/ / Nathaniel Hutchins MD / Nathaniel Hutchins MD Interpreting Provider: Nathaniel Hutchins MD Consult Discharge Plan - Plan Referrals: Maulik Handley MD [Primary Care Provider] - <Tenzin Barrios - Last Filed: 07/20/16 17:37> Date of Encounter: 07/20/16 - Constitutional Vitals: Temp Pulse Resp BP Pulse Ox 97.4 F L 78 17 106/86 98 07/20/16 10:50 07/20/16 10:50 07/20/16 10:50 07/20/16 10:50 07/20/16 10:50 Internal Medicine: Result - Labs CBC & Chem 7: 07/20/16 05:45 07/20/16 05:45 Labs: Short CBC 07/20/16 Range/Units 05:45 WBC 7.1 (4.3-11.1) K/mcL Hgb 14.7 (11.5-15.4) g/dL Hct 46.7 H (35.3-44.9) % Plt Count 69 L (140-400) K/mcL Neutrophils # 5.2 (1.6-8.9) K/mcL BMP 07/20/16 05:45 Sodium 142 Potassium 4.4 Chloride 106 Carbon Dioxide 24 BUN 66 H Creatinine 3.27 H Glucose 92 Calcium 8.6 Liver Function 07/20/16 Range/Units 05:45 Total Bilirubin 2.0 H (0.2-1.2) mg/dL AST 49 H (5-34) Units/L ALT 19 (0-55) Units/L Alkaline Phosphatase 87 (38-126) Units/L Albumin 2.5 L (3.5-5.0) g/dL - ABG Interpretation ABG results: PT/INR, D-dimer PT 14.8 Seconds (9.4-12.1) H 07/19/16 05:35 - Impressions Impressions Retroperitoneum Ultrasound 07/19/16 15:00 IMPRESSION: No hydronephrosis. D/ / 07/19/2016 16:57:56 Darien Uriostegui MD / earnold Interpreting Provider: Darien Uriostegui MD - Attending Attestation I examined this patient and my medical decision-making was reviewed with the SOLDER MAKING [employer]ORER/PA/Advanced Practice Nurse/Resident Physician. I agree with the documented findings, disposition and treatment plan as described except to the extent set forth below. Continue with iv vancomycin, High risk, needs vancomycin monitoring.
[2016-07-21] MEDS: 0.9 % Sodium Chloride 1,000 ML IVC SCH ×2 (00:44→23:43)
[2016-07-21 05:24] LABS: Basophils % 0.5 %; Immature Granulocytes % 0.9 % (0-4)
[2016-07-21 05:26] LABS: Eosinophils % 4.9 %; Hematocrit 45.4 % (35.3-44.9); Hemoglobin 14.3 g/dL (11.5-15.4); Immature Platelets 5.1 % (1.1-6.1); Mean Corpuscular HGB Conc 31.5 g/dL (31.6-35.5); Mean Corpuscular Hemoglobin 30.2 pg (28.0-33.3); Mean Platelet Volume 11.4 fL (9.4-12.4); Red Blood Count 4.73 M/mcL (3.82-4.97); Red Cell Distribution Width 17.7 % (11.5-14.5); Segmented Neutrophils % 63.7 %
[2016-07-21 05:27] LABS: Eosinophils # 0.3 K/mcL (0.0-0.6); Monocytes # 0.7 K/mcL (0.0-1.3); Neutrophils # 3.6 K/mcL (1.6-8.9); Nucleated Red Blood Cells 1.1 /100 WBC (0); Platelet Count 84 K/mcL (140-400)
[2016-07-21 05:50] LABS: Albumin 2.5 g/dL (3.5-5.0); Albumin/Globulin Ratio 0.7 (1.1-2.2); Bilirubin,Total 2.1 mg/dL (0.2-1.2); Calcium 8.8 mg/dL (8.6-10.8); Globulin 3.5 g/dL (2.4-3.5); Uric Acid 10.9 mg/dL (2.6-6.0)
[2016-07-21] MEDS: *HR* Heparin 5,000 UNIT/ML VIAL SQ SCH ×2 (06:11→18:10)
--- NOTE | 2016-07-21 07:41 | Nephrology Progress Note ---
Date of Encounter: 07/21/16 Time of Encounter: 10:45 - Assessment and Plan (1) Acute kidney injury superimposed on chronic kidney disease Current Visit: Yes Status: Acute Please measure the pt's weight every morning and start recording Urine output as these are necessary measures to help care for the patient's renal dysfunction. I do not see a weight on this pt since admission and no UOP has been recorded recently. To help optimize her volume status, these measures are important, and so I've placed new orders for daily weights and a communication order asking for I/O reporting. Because of the lack of UOP recording, it is not clear if she is anuric or oliguric. If she is anuric, then she may have ATN given that her renal dysfunction is not improving. She may also have progressed to full CKD stage V as an alternative consideration in the differential diagnosis. She does not appear to be responding to the IVF of 0.9% saline at 100ml/hr after several days , so I will decrease this to 75mL/hr for another day so as to limit the risks of fluid overload. No urgent HD needed today, but I will closely follow with you. Continue to follow a renal protective/supportive strategy. (2) Hyperuricemia Current Visit: Yes Status: Acute Likely multifactorial in etiology: diuretics and impaired clearance from her CKD. Trending better. Would be reasonable to add a xanthine oxidase inhibitor such as allopurinol 100mg per day (should limit the dosing in the setting of her advanced renal dysfunction). (3) Lower extremity edema Current Visit: Yes Status: Chronic Acute on chronic LE edema/lymphedema. She does not have proteinuria, so this is less likely related to a nephrotic syndrome etiology. I recommend LE wraps or PIERCE hoses when able Qualifiers: Qualified Code(s): R60.0 - Localized edema (4) CKD (chronic kidney disease), stage IV Current Visit: Yes Status: Chronic CKD stage IV and I reviewed her trend of eGFR for non- Americans, which was most recently in the 20s with one exception at 30, but typically stage IV CKD risk factors in the outpt setting: relatively small/atrophy kidneys ( especially the right), chronic diuretics, hemodynamic (TR with Rt HF and pulm HTN), hyperuricemia Subjective Principal diagnosis: AURORA on CKD Interval history: Pt was seen/examined earlier today. She did not affirm N/V/D, diminished appetite or other uremic symptoms. She was conversant and friendly. Objective - Vital Signs Vital signs: Vital Signs Temp Pulse Resp BP Pulse Ox 07/21/16 04:52 98.3 F 50 14 96/80 100 07/21/16 00:47 97.9 F 50 14 95/76 100 07/20/16 21:18 97.4 F L 50 14 97/64 95 07/20/16 10:50 97.4 F L 78 17 106/86 98 Intake and Output 07/20/16 07/20/16 07/21/16 15:59 23:59 07:59 Intake Total 1220 / 1220 360 / 360 1000 / 1000 Balance 1220 / 1220 360 / 360 1000 / 1000 Intake: IV Fluids 1100 / 1100 1000 / 1000 0.9 % Sodium Chloride 1, 1000 / 1000 1000 / 1000 000 ML @ 100 mls/hr IVC . Q10H T[facility] Rx#:[id number] Zosyn 3.375 GM In 100 / 100 Dextrose 5% (Minibag+) 100 ML 100 ML @ 25 mls/hr IVPB Q12HR TOREY Rx#: [id number] Oral 120 / 120 360 / 360 Other: Meal Lunch Dinner Percent of Meal Consumed 50% 75% # Voids 1 # Urine Diapers 0 - General Appearance General appearance: Present: well-developed, well-nourished, appears started age EENT: Present: ATNC, PERRL, mucous membranes moist Neck: Present: supple Respiratory: Present: clear Cardiology: Present: edema, regular rate, normal S1, normal S2 Gastrointestinal: Present: normoactive bowel sounds, no tenderness, no guarding Integumentary: Present: ulcer, erythema, ecchymotic, decubiti, chronic venous stasis Neurologic: Present: no focal deficit, no asterixis Musculoskeletal: Present: cyanosis Psychiatric: Present: mood/affect appropriate, cooperative - Lab 07/21/16 05:08 07/21/16 05:08 Most recent lab results Calcium 8.8 mg/dL (8.6-10.8) 07/21/16 05:08 Magnesium 2.4 mg/dL (1.6-2.6) 07/20/16 05:45 Urine Creatinine 98 mg/dL 07/19/16 11:58 Urine Sodium < 20.0 mEq/L 07/19/16 11:58 Consult Discharge Plan - Plan Referrals: Maulik Handley MD [Primary Care Provider] -
[2016-07-21] MEDS: Aspirin 325 MG TABLET PO SCH (07:51)
[2016-07-21] MEDS: *HR* Amiodarone 200 MG TABLET PO SCH (07:51)
[2016-07-21] MEDS: Silvasorb 44.4 ML TUBE TP SCH (08:24)
--- NOTE | 2016-07-21 14:13 | Internal Med Progress Note ---
<Karthik Morris Rosas - Last Filed: 07/21/16 14:11> Date of Encounter: 07/21/16 Time of Encounter: 09:00 - Assessment and plan (1) Lower extremity cellulitis Current Visit: Yes Status: Acute Assessment and plan: Ms. Beach has a history of chronic lower extremity edema and venous stasis. She has had worsening in her erythema and formation of cracks in her skin and blister formations. She is also becoming more confused over the last few days. She had a recent wound culture that grew enterococcus. Blood cultures results are pending. Current antibiotic coverage includes vancomycin. Venous Doppler will without signs of clot. CT of the bilateral lower extremities was negative for LE osteomyelitis with findings diffuse subcutaneous fat stranding and thickening of bilateral extremities compatable with lymphedema versus cell. Skin blistering along the dorsum of the left frontal foot. With the patient's dependent edema/venous stasis, she is at risk for recurrent skin breaks and infections. Currently continued wound care and lower extremity skin care will be important for healing and prevention of further infections. Plan: - Continue current antibiotic coverage with vancomycin - Awaiting final results of blood cultures. Preliminary no growth since 2016 - Continue wound care Qualifiers: Qualified Code(s): L03.119 - Cellulitis of unspecified part of limb (2) Lower extremity edema Current Visit: Yes Status: Chronic Assessment and plan: patient has a history of chronic lower extremity edema likely secondary to severe tricuspid regurgitation and CHF. Qualifiers: Qualified Code(s): R60.0 - Localized edema (3) Acute kidney injury superimposed on chronic kidney disease Current Visit: Yes Status: Acute Assessment and plan: Ms. Beach demonstrates acute on chronic kidney injury. She has a baseline stage IV CKD. Nephrology is following the patient's and the recommendations are greatly appreciated. As recommended per nephrology will continue with daily weights and strict ins and outs. Patient has bedside commode for urine collection and recording. Plan: - Continue current fluids rehydration, normal saline at 75 ML's per hour - Nephrology is following the patient, retroperitoneal ultrasound does not show any signs of hydronephrosis - Continue to monitor kidney function with a.m. labs. (4) Tricuspid valve regurgitation Current Visit: Yes Status: Chronic Assessment and plan: Patient has a known history of tricuspid valve regurgitation and had been evaluated in [place]. She has currently been followed by [facility]. Likely contributed to her bilateral lower extremity edema. Echocardiogram was completed with results pending. Continue to monitor. 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 - Subjective Interval history: Ms. Beach has been seen and evaluated the patient bedside was 20. She is awake alert she is interacting. She is sitting up in the chair at bedside eating breakfast, she said that her legs are feeling better this morning but I pump and still operator to light touch. She denies any increase in pain, fevers, chills, blurry vision chest pains, palpitations, shortness of breath or abdominal pains. She is concerned about urinary frequency which she said is been ongoing for quite some time. She denies any other pains or discomforts at this time. I discussed her renal function which she demonstrates poor insight on. She met with the supervisor inventory merchandising earlier this morning and is unsure of what their plan was and she might not have understood. When asked she is opposed to needing dialysis if it comes to that. This should be rediscussed when family is around to ensure understanding. - Constitutional Vitals: Temp Pulse Resp BP Pulse Ox 97.4 F L 87 14 97/60 95 07/21/16 11:51 07/21/16 11:51 07/21/16 11:51 07/21/16 11:51 07/21/16 11:51 General appearance: Absent: answers questions appropriately Exam: Mental status altered, interactive, in no acute distress, hard of hearing in the left ear Cardiac: Regular rate and rhythm Systolic tricuspid murmur appreciated. Respiratory clear to auscultation all lung myers Abdomen is soft nontender to palpation positive bowel sounds Lower extremities: Bilateral lower extremity edema with blue/purple discoloration exacerbated when dangling feet. There are diffuse breaks in the skin with ulceration on the anterior shins bilateral with dermal hemorrhaging on the toes. There is a large blister with yellow fluid on the dorsal aspect of the left foot. Her skin is very tender light touch on bilateral lower extremities. Wound care dressing reapplied today. Internal Medicine: Result - Labs CBC & Chem 7: 07/21/16 05:08 07/21/16 05:08 Labs: Short CBC 07/21/16 Range/Units 05:08 WBC 5.7 (4.3-11.1) K/mcL Hgb 14.3 (11.5-15.4) g/dL Hct 45.4 H (35.3-44.9) % Plt Count 84 L (140-400) K/mcL Neutrophils # 3.6 (1.6-8.9) K/mcL BMP 07/21/16 05:08 Sodium 141 Potassium 4.0 Chloride 108 Carbon Dioxide 20 BUN 66 H Creatinine 3.45 H Glucose 79 Calcium 8.8 Liver Function 07/21/16 Range/Units 05:08 Total Bilirubin 2.1 H (0.2-1.2) mg/dL AST 32 (5-34) Units/L ALT 16 (0-55) Units/L Alkaline Phosphatase 93 (38-126) Units/L Albumin 2.5 L (3.5-5.0) g/dL - ABG Interpretation ABG results: PT/INR, D-dimer PT 14.8 Seconds (9.4-12.1) H 07/19/16 05:35 Consult Discharge Plan - Plan Referrals: Maulik Handley MD [Primary Care Provider] - <Tenzin Barrios R - Last Filed: 07/21/16 14:56> Date of Encounter: 07/21/16 - Constitutional Vitals: Temp Pulse Resp BP Pulse Ox 97.4 F L 87 14 97/60 95 07/21/16 11:51 07/21/16 11:51 07/21/16 11:51 07/21/16 11:51 07/21/16 11:51 Internal Medicine: Result - Labs CBC & Chem 7: 07/21/16 05:08 07/21/16 05:08 Labs: Short CBC 07/21/16 Range/Units 05:08 WBC 5.7 (4.3-11.1) K/mcL Hgb 14.3 (11.5-15.4) g/dL Hct 45.4 H (35.3-44.9) % Plt Count 84 L (140-400) K/mcL Neutrophils # 3.6 (1.6-8.9) K/mcL BMP 07/21/16 05:08 Sodium 141 Potassium 4.0 Chloride 108 Carbon Dioxide 20 BUN 66 H Creatinine 3.45 H Glucose 79 Calcium 8.8 Liver Function 07/21/16 Range/Units 05:08 Total Bilirubin 2.1 H (0.2-1.2) mg/dL AST 32 (5-34) Units/L ALT 16 (0-55) Units/L Alkaline Phosphatase 93 (38-126) Units/L Albumin 2.5 L (3.5-5.0) g/dL - ABG Interpretation ABG results: PT/INR, D-dimer PT 14.8 Seconds (9.4-12.1) H 07/19/16 05:35 - Attending Attestation Mrs. Beach was seen and examined during rounds. We will continue monitoring input and output. Evaluation by nephrology appreciated. Will switch antibiotics from vancomycin to ampicillin. We will continue monitoring the patient closely. GFR less than 15. Avoid nephrotoxic agents.
[2016-07-21] MEDS: Ampicillin 1,000 MG in 0.9 % Sodium Chloride Mini Bag 100 ML IVPB SCH ×2 (18:09→23:45)
[2016-07-21] MEDS: *HR* OxyCODONE/APAP 5/325 TABLET PO PRN ×2 (18:16→21:51)
[2016-07-22] MEDS: 0.9 % Sodium Chloride 1,000 ML IVC SCH ×3 (02:51→13:30)
[2016-07-22 05:10] LABS: Basophils % 0.5 %; Eosinophils # 0.2 K/mcL (0.0-0.6); Eosinophils % 4.1 %; Hematocrit 43.4 % (35.3-44.9); Hemoglobin 13.7 g/dL (11.5-15.4); Immature Granulocytes % 0.5 % (0-4); Lymphocytes % 17.8 %; Mean Corpuscular HGB Conc 31.6 g/dL (31.6-35.5); Mean Corpuscular Hemoglobin 30.9 pg (28.0-33.3); Mean Platelet Volume 11.8 fL (9.4-12.4); Monocytes # 0.5 K/mcL (0.0-1.3); Monocytes % 8.9 %; Nucleated Red Blood Cells 0.9 /100 WBC (0); Platelet Count 101 K/mcL (140-400); Red Blood Count 4.43 M/mcL (3.82-4.97); Red Cell Distribution Width 18.2 % (11.5-14.5); Segmented Neutrophils % 68.2 %
[2016-07-22 05:18] LABS: Lymphocytes # 1.1 K/mcL (0.6-4.6)
[2016-07-22 05:31] LABS: Albumin 2.5 g/dL (3.5-5.0); Albumin/Globulin Ratio 0.7 (1.1-2.2); Bilirubin,Total 2.2 mg/dL (0.2-1.2); Calcium 8.4 mg/dL (8.6-10.8); Globulin 3.5 g/dL (2.4-3.5)
[2016-07-22 05:38] LABS: Platelet Estimate Slight Decrease (Normal)
[2016-07-22] MEDS: *HR* Heparin 5,000 UNIT/ML VIAL SQ SCH ×2 (05:48→18:30)
[2016-07-22] MEDS: Ampicillin 1,000 MG in 0.9 % Sodium Chloride Mini Bag 100 ML IVPB SCH ×3 (05:48→18:30)
[2016-07-22 05:51] LABS: Potassium 4.4 mEq/L (3.5-4.5)
[2016-07-22] MEDS: Aspirin 325 MG TABLET PO SCH (09:00)
[2016-07-22] MEDS: *HR* Amiodarone 200 MG TABLET PO SCH (09:00)
[2016-07-22] MEDS: Silvasorb 44.4 ML TUBE TP SCH (11:15)
--- NOTE | 2016-07-22 11:39 | Internal Med Progress Note ---
Date of Encounter: 07/22/16 Time of Encounter: 11:35 - Assessment and plan (1) Acute kidney injury superimposed on chronic kidney disease Current Visit: Yes Status: Acute Assessment and plan: Ms. Beach demonstrates acute on chronic kidney injury. She has a baseline stage IV CKD. Nephrology is following the patient's and the recommendations are greatly appreciated. As recommended per nephrology will continue with daily weights and strict ins and outs. Patient has bedside commode for urine collection and recording. Plan: - Continue current fluids rehydration, normal saline at 75 ML's per hour - Nephrology is following the patient, retroperitoneal ultrasound does not show any signs of hydronephrosis - Continue to monitor kidney function with a.m. labs. (2) Lower extremity cellulitis Current Visit: Yes Status: Acute Assessment and plan: Ms. Beach has a history of chronic lower extremity edema and venous stasis. She has had worsening in her erythema and formation of cracks in her skin and blister formations. She is also becoming more confused over the last few days. She had a recent wound culture that grew enterococcus. Blood cultures results are pending. Current antibiotic coverage includes ampicilin. Venous Doppler will without signs of clot. CT of the bilateral lower extremities was negative for LE osteomyelitis with findings diffuse subcutaneous fat stranding and thickening of bilateral extremities compatable with lymphedema versus cell. Skin blistering along the dorsum of the left frontal foot. With the patient's dependent edema/venous stasis, she is at risk for recurrent skin breaks and infections. Currently continued wound care and lower extremity skin care will be important for healing and prevention of further infections. Plan: - Continue current antibiotic coverage with ampicilin. - Awaiting final results of blood cultures. Preliminary no growth since 2016 - Continue wound care. - D/C planning. 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 She was complaining of bilateral lower extremity pain. - Constitutional Vitals: Temp Pulse Resp BP Pulse Ox 97.2 F L 53 17 109/56 92 L 07/22/16 10:06 07/22/16 10:06 07/22/16 10:06 07/22/16 10:06 07/22/16 10:06 General appearance: Present: A&O X 3, pleasant, obese. Absent: answers questions appropriately Exam: hard of hearing - Head Head exam: Present: atraumatic, normocephalic - Eye Eye exam: Present: PERRL, conjuntiva pink, sclera anicteric Pupils: Present: PERRL - Neck Neck exam general surgery: Present: supple, trachea midline. Absent: lymphadenopathy - Respiratory Respiratory exam: Present: CTAB. Absent: accessory muscle use, rales, rhonchi, wheezes - Cardiovascular Cardiovascular exam: Present: RRR, +S1, +S2. Absent: diastolic murmur, gallop, rubs, systolic murmur - GI/Abdominal GI/Abdominal exam: Present: normal bowel sounds, soft, no peritoneal signs. Absent: distended, tenderness - Extremities Exam Extremities exam: Present: tenderness, warm, radial pulses palpable and symetrical. Absent: calf tenderness, cyanotic, pedal edema Additional comments: bilateral erythematous changes and bluish discoloration in both lower extremities, wounds covered by bandages - Neurological Exam Neurological exam: Present: CN II-XII intact, oriented X3, no focal deficits. Absent: pronater drift, facial droop, speech deficit - Skin Skin exam: Present: dry, intact Internal Medicine: Result - Labs CBC & Chem 7: 07/22/16 04:47 07/22/16 04:47 Labs: Short CBC 07/22/16 Range/Units 04:47 WBC 5.9 (4.3-11.1) K/mcL Hgb 13.7 (11.5-15.4) g/dL Hct 43.4 (35.3-44.9) % Plt Count 101 L (140-400) K/mcL Neutrophils # 4.0 (1.6-8.9) K/mcL BMP 07/22/16 04:47 Sodium 138 Potassium 4.4 Chloride 110 H Carbon Dioxide 14 L BUN 62 H Creatinine 3.10 H Glucose 87 Calcium 8.4 L Liver Function 07/22/16 Range/Units 04:47 Total Bilirubin 2.2 H (0.2-1.2) mg/dL AST 39 H (5-34) Units/L ALT 16 (0-55) Units/L Alkaline Phosphatase 84 (38-126) Units/L Albumin 2.5 L (3.5-5.0) g/dL - ABG Interpretation ABG results: PT/INR, D-dimer PT 14.8 Seconds (9.4-12.1) H 07/19/16 05:35 Consult Discharge Plan - Plan Referrals: Maulik Handley MD [Primary Care Provider] -
--- NOTE | 2016-07-22 14:28 | Nephrology Progress Note ---
Date of Encounter: 07/22/16 Time of Encounter: 09:45 - Assessment and Plan (1) Acute kidney injury superimposed on chronic kidney disease Current Visit: Yes Status: Acute AURORA on CKD, with slightly improved SCr. The pt was in the bedside chair -- she said she is unable to ambulate to the commode in time. She No urgent HD needed today, and does not appear uremic on exam. She has a mild hyperchloremic non-gap metabolic acidosis, which can be seen with IVF. Now that she is eating well, I recommend stopping the 0.9% IVF today. Continue to follow a renal protective/supportive strategy. (2) Hyperuricemia Current Visit: Yes Status: Acute Likely multifactorial in etiology: diuretics and impaired clearance from her CKD. Continue allopurinol (3) Lower extremity edema Current Visit: Yes Status: Chronic Acute on chronic LE edema/lymphedema. She does not have proteinuria, so this is less likely related to a nephrotic syndrome etiology. I recommend LE wraps or PIERCE hoses when able, though limited by her LE wounds Qualifiers: Qualified Code(s): R60.0 - Localized edema (4) CKD (chronic kidney disease), stage IV Current Visit: Yes Status: Chronic CKD stage IV and I reviewed her trend of eGFR for non- Americans, which was most recently in the 20s with one exception at 30, but typically stage IV CKD risk factors in the outpt setting: relatively small/atrophy kidneys ( especially the right), chronic diuretics, hemodynamic (TR with Rt HF and pulm HTN), hyperuricemia Subjective Principal diagnosis: AURORA on CKD Interval history: Pt was seen/examined earlier today. She did not affirm N/V/D, diminished appetite or other uremic symptoms. She is hard of hearing Objective - Vital Signs Vital signs: Vital Signs Temp Pulse Resp BP Pulse Ox 07/22/16 10:06 97.2 F L 53 17 109/56 92 L 07/22/16 06:30 97.4 F L 57 18 111/72 92 L 07/22/16 04:04 97.7 F 81 15 88/75 98 07/21/16 20:18 97.4 F L 80 16 122/79 94 L 07/21/16 16:41 97.4 F L 87 16 102/61 95 Intake and Output 07/21/16 07/22/16 07/22/16 23:59 07:59 15:59 Intake Total 240 / 240 500 / 500 1093 / 1093 Output Total 500 / 500 400 / 400 0 / 0 Balance -260 / -260 100 / 100 1093 / 1093 Intake: IV Fluids 200 / 200 513 / 513 Ampicillin 1,000 MG In 0. 200 / 200 9 % Sodium Chloride (Mini -Bag +) 100 ML @ 200 mls/ hr IVPB Q6HR [facility] Rx#: [id number] Oral 240 / 240 300 / 300 580 / 580 Output: Urine 500 / 500 0 / 0 Urine/Stool Mix 400 / 400 Other: Meal Dinner Lunch Percent of Meal Consumed 100% 60% Stool Size Large Stool Consistency formed Stool Color Brown # Urine Diapers 0 # Bowel Movements 1 0 # Bowel Movement Diapers 0 - General Appearance General appearance: Present: well-developed, appears started age, chronically ill, frail EENT: Present: ATNC Neck: Present: supple Respiratory: Present: clear Cardiology: Present: edema, regular rhythm, normal S1, normal S2 Gastrointestinal: Present: normoactive bowel sounds, no tenderness, no guarding Integumentary: Present: ulcer, erythema Neurologic: Present: no focal deficit Musculoskeletal: Present: no clubbing Psychiatric: Present: cooperative - Lab 07/22/16 04:47 07/22/16 04:47 Most recent lab results Calcium 8.4 mg/dL (8.6-10.8) L 07/22/16 04:47 Magnesium 2.4 mg/dL (1.6-2.6) 07/20/16 05:45 Urine Creatinine 98 mg/dL 07/19/16 11:58 Urine Sodium < 20.0 mEq/L 07/19/16 11:58 Consult Discharge Plan - Plan Referrals: Maulik Handley MD [Primary Care Provider] -
[2016-07-22] MEDS: *HR* OxyCODONE/APAP 5/325 TABLET PO PRN (21:00)
[2016-07-23] MEDS: Ampicillin 1,000 MG in 0.9 % Sodium Chloride Mini Bag 100 ML IVPB SCH ×4 (00:49→17:27)
[2016-07-23] MEDS: *HR* Heparin 5,000 UNIT/ML VIAL SQ SCH ×2 (06:20→18:25)
[2016-07-23 07:35] LABS: Basophils % 0.6 %; Eosinophils # 0.3 K/mcL (0.0-0.6); Eosinophils % 4.9 %; Hematocrit 42.9 % (35.3-44.9); Hemoglobin 13.7 g/dL (11.5-15.4); Immature Granulocytes % 1.1 % (0-4); Immature Platelets 2.4 % (1.1-6.1); Lymphocytes # 0.7 K/mcL (0.6-4.6); Lymphocytes % 12.7 %; Mean Corpuscular HGB Conc 31.9 g/dL (31.6-35.5); Mean Corpuscular Hemoglobin 30.9 pg (28.0-33.3); Mean Corpuscular Volume 96.6 fL (83.0-100.0); Mean Platelet Volume 10.4 fL (9.4-12.4); Monocytes # 0.7 K/mcL (0.0-1.3); Monocytes % 12.5 %; Neutrophils # 3.6 K/mcL (1.6-8.9); Nucleated Red Blood Cells 0.6 /100 WBC (0); Platelet Count 104 K/mcL (140-400); Red Blood Count 4.44 M/mcL (3.82-4.97); Red Cell Distribution Width 17.7 % (11.5-14.5); Segmented Neutrophils % 68.2 %
[2016-07-23 07:46] LABS: Calcium 8.8 mg/dL (8.6-10.8); Potassium 3.9 mEq/L (3.5-4.5)
[2016-07-23] MEDS: *HR* Amiodarone 200 MG TABLET PO SCH (08:38)
[2016-07-23] MEDS: Aspirin 325 MG TABLET PO SCH (08:38)
[2016-07-23] MEDS: Silvasorb 44.4 ML TUBE TP SCH (08:38)
--- NOTE | 2016-07-23 11:35 | Internal Med Progress Note ---
Date of Encounter: 07/23/16 Time of Encounter: 11:33 - Assessment and plan (1) Acute kidney injury superimposed on chronic kidney disease Current Visit: Yes Status: Acute Assessment and plan: Ms. Beach demonstrates acute on chronic kidney injury. She has a baseline stage IV CKD. Nephrology is following the patient's and the recommendations are greatly appreciated. As recommended per nephrology will continue with daily weights and strict ins and outs. Patient has bedside commode for urine collection and recording. Plan: - Nephrology is following the patient, retroperitoneal ultrasound does not show any signs of hydronephrosis, iv fluids were stopped. - Continue to monitor kidney function with a.m. labs. (2) Lower extremity cellulitis Current Visit: Yes Status: Acute Assessment and plan: Ms. Beach has a history of chronic lower extremity edema and venous stasis. She has had worsening in her erythema and formation of cracks in her skin and blister formations. She is also becoming more confused over the last few days. She had a recent wound culture that grew enterococcus. Blood cultures results are pending. Current antibiotic coverage includes ampicilin. Venous Doppler will without signs of clot. CT of the bilateral lower extremities was negative for LE osteomyelitis with findings diffuse subcutaneous fat stranding and thickening of bilateral extremities compatable with lymphedema versus cell. Skin blistering along the dorsum of the left frontal foot. With the patient's dependent edema/venous stasis, she is at risk for recurrent skin breaks and infections. Currently continued wound care and lower extremity skin care will be important for healing and prevention of further infections. Plan: - Continue current antibiotic coverage with ampicilin. - Awaiting final results of blood cultures. Preliminary no growth since 2016 - Continue wound care. - D/C keo cai D/C tomorrow to [facility], follow with aids social worker. 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 She was complaining of bilateral lower extremity pain. - Constitutional Vitals: Temp Pulse Resp BP Pulse Ox 97.7 F 85 17 107/67 92 L 07/23/16 10:33 07/23/16 10:33 07/23/16 10:33 07/23/16 10:33 07/23/16 10:33 General appearance: Present: A&O X 3, pleasant, obese. Absent: answers questions appropriately Exam: hard of hearing. - Head Head exam: Present: atraumatic, normocephalic - Eye Eye exam: Present: PERRL, conjuntiva pink, sclera anicteric Pupils: Present: PERRL - Neck Neck exam general surgery: Present: supple, trachea midline. Absent: lymphadenopathy - Respiratory Respiratory exam: Present: CTAB. Absent: accessory muscle use, rales, rhonchi, wheezes - Cardiovascular Cardiovascular exam: Present: RRR, +S1, +S2. Absent: diastolic murmur, gallop, rubs, systolic murmur - GI/Abdominal GI/Abdominal exam: Present: normal bowel sounds, soft, no peritoneal signs. Absent: distended, tenderness - Extremities Exam Extremities exam: Present: warm, radial pulses palpable and symetrical. Absent : calf tenderness, cyanotic, pedal edema - Neurological Exam Neurological exam: Present: CN II-XII intact, oriented X3, no focal deficits. Absent: pronater drift, facial droop, speech deficit - Skin Skin exam: Present: dry, intact Internal Medicine: Result - Labs CBC & Chem 7: 07/23/16 07:24 07/23/16 07:24 Labs: Short CBC 07/23/16 Range/Units 07:24 WBC 5.3 (4.3-11.1) K/mcL Hgb 13.7 (11.5-15.4) g/dL Hct 42.9 (35.3-44.9) % Plt Count 104 L (140-400) K/mcL Neutrophils # 3.6 (1.6-8.9) K/mcL BMP 07/23/16 07:24 Sodium 140 Potassium 3.9 Chloride 109 Carbon Dioxide 21 BUN 55 H Creatinine 2.60 H Glucose 87 Calcium 8.8 - ABG Interpretation ABG results: PT/INR, D-dimer PT 14.8 Seconds (9.4-12.1) H 07/19/16 05:35 Consult Discharge Plan - Plan Referrals: Maulik Handley MD [Primary Care Provider] -
--- NOTE | 2016-07-23 12:52 | Nephrology Progress Note ---
Date of Encounter: 07/23/16 Time of Encounter: 10:30 - Assessment and Plan (1) Acute kidney injury superimposed on chronic kidney disease Current Visit: Yes Status: Acute SCr was slightly improved today, which is reassuring. From a renal perspective, if her SCr continues and trends better, this would be reassuring. Will check a BMP in the AM. The non-gap metabolic acidosis has improved off the IVF. Continue to follow a renal protective/supportive strategy including a request for daily weights and I/Os (however, it turns out that she is incontinent). There is no need for early catheter for I/O collection. No urgent HD needed today, and does not appear uremic on exam. (2) Hyperuricemia Current Visit: Yes Status: Acute Likely multifactorial in etiology: diuretics and impaired clearance from her CKD. Continue allopurinol (3) Lower extremity edema Current Visit: Yes Status: Chronic Acute on chronic LE edema/lymphedema. She does not have proteinuria, so this is less likely related to a nephrotic syndrome etiology. I recommend LE wraps or PIERCE hoses when able, though limited by her LE wounds Qualifiers: Laterality: bilateral Qualified Code(s): R60.0 - Localized edema (4) CKD (chronic kidney disease), stage IV Current Visit: Yes Status: Chronic CKD stage IV and I reviewed her trend of eGFR for non- Americans, which was most recently in the 20s with one exception at 30, but typically stage IV CKD risk factors in the outpt setting: relatively small/atrophy kidneys ( especially the right), chronic diuretics, hemodynamic (TR with Rt HF and pulm HTN), hyperuricemia Subjective Principal diagnosis: AURORA on CKD Interval history: Pt was seen/examined earlier today. She did not affirm N/V/D, diminished appetite or other uremic symptoms. She is hard of hearing. No major complaints. Objective - Vital Signs Vital signs: Vital Signs Temp Pulse Resp BP Pulse Ox 07/23/16 10:33 97.7 F 85 17 107/67 92 L 07/23/16 07:07 97.4 F L 79 16 114/65 92 L 07/23/16 04:22 97.9 F 88 16 136/61 96 07/22/16 23:10 97.3 F L 56 12 115/67 97 07/22/16 20:45 96 07/22/16 19:22 97.5 F L 93 12 123/76 96 07/22/16 14:39 97.8 F 55 17 106/56 99 Intake and Output 07/22/16 07/23/16 07/23/16 23:59 07:59 15:59 Intake Total 160 / 160 200 / 200 340 / 340 Output Total 600 / 600 0 / 0 Balance -440 / -440 200 / 200 340 / 340 Intake: IV Fluids 100 / 100 200 / 200 Ampicillin 1,000 MG In 0. 100 / 100 200 / 200 9 % Sodium Chloride (Mini -Bag +) 100 ML @ 200 mls/ hr IVPB Q6HR [facility] Rx#: [id number] Oral 60 / 60 340 / 340 Output: Urine 600 / 600 0 / 0 Other: Meal Dinner Breakfast Percent of Meal Consumed 50% 100% Stool Size Moderate Stool Consistency soft Stool Color Brown # Urine Diapers 0 # Bowel Movements 1 0 # Bowel Movement Diapers 0 - General Appearance Exam: General appearance: Present: well-developed, appears started age, chronically ill, frail EENT: Present: ATNC, Hard of hearing Neck: Present: supple Respiratory: Present: clear Cardiology: Present: edema (stable of the b/l LEs), regular rhythm, normal S1, normal S2 Gastrointestinal: Present: normoactive bowel sounds, no tenderness, no guarding Integumentary: Present: ulcer, erythema Neurologic: Present: no focal deficit Musculoskeletal: Present: no clubbing Psychiatric: Present: cooperative - Lab 07/23/16 07:24 07/23/16 07:24 Most recent lab results Calcium 8.8 mg/dL (8.6-10.8) 07/23/16 07:24 Magnesium 2.4 mg/dL (1.6-2.6) 07/20/16 05:45 Urine Creatinine 98 mg/dL 07/19/16 11:58 Urine Sodium < 20.0 mEq/L 07/19/16 11:58 Consult Discharge Plan - Plan Referrals: Maulik Handley MD [Primary Care Provider] -
[2016-07-23] MEDS: *HR* OxyCODONE/APAP 5/325 TABLET PO PRN (17:26)
[2016-07-24] MEDS: Ampicillin 1,000 MG in 0.9 % Sodium Chloride Mini Bag 100 ML IVPB SCH ×5 (00:20→23:30)
[2016-07-24 04:35] LABS: Red Cell Distribution Width 17.6 % (11.5-14.5)
[2016-07-24 04:38] LABS: Hematocrit 38.9 % (35.3-44.9); Hemoglobin 12.2 g/dL (11.5-15.4); Mean Corpuscular HGB Conc 31.4 g/dL (31.6-35.5); Mean Corpuscular Hemoglobin 30.2 pg (28.0-33.3); Mean Corpuscular Volume 96.3 fL (83.0-100.0); Mean Platelet Volume 10.7 fL (9.4-12.4); Red Blood Count 4.04 M/mcL (3.82-4.97)
[2016-07-24 04:49] LABS: Calcium 8.5 mg/dL (8.6-10.8); Potassium 4.6 mEq/L (3.5-4.5)
[2016-07-24 05:18] LABS: Platelet Count 85 K/mcL (140-400)
[2016-07-24 05:52] LABS: Eosinophils # 0.1 K/mcL (0.0-0.6); Lymphocytes # 1.8 K/mcL (0.6-4.6); Neutrophils # 3.2 K/mcL (1.6-8.9)
[2016-07-24 05:53] LABS: Platelet Estimate Decreased (Normal)
[2016-07-24] MEDS: *HR* Heparin 5,000 UNIT/ML VIAL SQ SCH ×2 (06:37→18:04)
[2016-07-24 07:26] LABS: Complement Component 3 84 mg/dL (88-201); Complement Component 4 22 mg/dL (10-40)
[2016-07-24 07:41] LABS: ANA IgG by ELISA DETECTED (None Detected)
[2016-07-24] MEDS: Aspirin 325 MG TABLET PO SCH (08:09)
[2016-07-24] MEDS: *HR* Amiodarone 200 MG TABLET PO SCH (08:09)
[2016-07-24] MEDS: Silvasorb 44.4 ML TUBE TP SCH (08:09)
--- NOTE | 2016-07-24 10:51 | Internal Med Progress Note ---
Date of Encounter: 07/24/16 Time of Encounter: 10:49 - Assessment and plan (1) Acute kidney injury superimposed on chronic kidney disease Current Visit: Yes Status: Acute Assessment and plan: Patient has history of stage IV CKD Holding nephrotoxic agents at this time Nephrology greatly appreciated Kidney function improving Discontinued IV fluids Continue to monitor (2) Lower extremity cellulitis Current Visit: Yes Status: Acute Assessment and plan: Patient noted to have history of chronic lower extremity venous stasis with recurrent cellulitis Currently responding well to ampicillin and daily wound care Venous Dopplers negative for lower extremity DVT Continue IV antibiotic coverage with ampicillin at this time to complete therapy for a total of 14 days Likely discharge in the morning, awaiting IV antibiotic arrangement and SNF placement. Qualifiers: Laterality: unspecified laterality Qualified Code(s): L03.119 - Cellulitis of unspecified part of limb (3) Morbidly obese Current Visit: Yes Status: Chronic Qualifiers: Obesity type: unspecified obesity type Qualified Code(s): E66.01 - Morbid ( severe) obesity due to excess calories (4) DVT prophylaxis Current Visit: Yes Status: Acute Assessment and plan: Heparin SQ (5) Hypertension Current Visit: Yes Status: Chronic Assessment and plan: BP within acceptable range continue to monitor Qualifiers: Hypertension type: essential hypertension Qualified Code(s): I10 - Essential (primary) hypertension - Subjective Interval history: Patient seen and examined, resting comfortably in chair. Reports feeling better compared to the previous day. Patient currently AAOx 3 at this time however noted to have underlying dementia and her mental status waxes and wanes. - Constitutional Vitals: Temp Pulse Resp BP Pulse Ox 97.7 F 73 18 130/84 95 07/24/16 10:39 07/24/16 10:39 07/24/16 10:39 07/24/16 10:39 07/24/16 10:39 General appearance: Present: A&O X 3, morbidly obese, pleasant. Absent: answers questions appropriately - Head Head exam: Present: atraumatic, normocephalic - Eye Eye exam: Present: normal appearance, conjuntiva pink, sclera anicteric - Respiratory Respiratory exam: Present: CTAB. Absent: respiratory distress, wheezes - Cardiovascular Cardiovascular exam: Present: RRR, +S1, +S2 - GI/Abdominal GI/Abdominal exam: Present: normal bowel sounds, soft. Absent: distended, tenderness - Extremities Exam Extremities exam: Present: pedal edema (diffuse chronic venous stasis and edema in bilateral lower extremities. Weeping ulcers noted on bilateral lower extremities. Diffuse brusing on bilateral upper extremites ) - Neurological Exam Neurological exam: Present: alert, oriented X3, no focal deficits - Psychiatric Psychiatric exam: Present: normal affect, normal mood Internal Medicine: Result - Labs CBC & Chem 7: 07/24/16 04:05 07/24/16 04:05 Labs: Short CBC 07/24/16 Range/Units 04:05 WBC 6.1 (4.3-11.1) K/mcL Hgb 12.2 D (11.5-15.4) g/dL Hct 38.9 (35.3-44.9) % Plt Count 85 L (140-400) K/mcL Neutrophils # 3.2 (1.6-8.9) K/mcL BMP 07/24/16 04:05 Sodium 142 Potassium 4.6 H Chloride 113 H Carbon Dioxide 19 BUN 51 H Creatinine 2.32 H Glucose 92 Calcium 8.5 L - ABG Interpretation ABG results: PT/INR, D-dimer PT 14.8 Seconds (9.4-12.1) H 07/19/16 05:35 Consult Discharge Plan - Plan Referrals: Maulik Handley MD [Primary Care Provider] -
--- NOTE | 2016-07-24 11:41 | Nephrology Progress Note ---
Date of Encounter: 07/24/16 Time of Encounter: 10:40 - Assessment and Plan (1) Acute kidney injury superimposed on chronic kidney disease Current Visit: Yes Status: Acute SCr was slightly improved today, again, which is reassuring. From a renal perspective, if her SCr continues and trends better, this would be reassuring. No need for HD initiation at this time, though I do recommend close follow up with her primary tool supervisor, Dr. Ramos. Continue to follow a renal protective/supportive strategy including a request for daily weights and I/Os (however, it turns out that she is incontinent). There is no need for early catheter for I/O collection. (2) Hyperuricemia Current Visit: Yes Status: Acute Likely multifactorial in etiology: diuretics and impaired clearance from her CKD. Continue allopurinol (3) Lower extremity edema Current Visit: Yes Status: Chronic Acute on chronic LE edema/lymphedema. She does not have proteinuria, so this is less likely related to a nephrotic syndrome etiology. I recommend LE wraps or PIERCE hoses when able, though limited by her LE wounds Qualifiers: Laterality: bilateral Qualified Code(s): R60.0 - Localized edema (4) CKD (chronic kidney disease), stage IV Current Visit: Yes Status: Chronic CKD stage IV and I reviewed her trend of eGFR for non- Americans, which was most recently in the 20s with one exception at 30, but typically stage IV CKD risk factors in the outpt setting: relatively small/atrophy kidneys ( especially the right), chronic diuretics, hemodynamic (TR with Rt HF and pulm HTN), hyperuricemia Subjective Principal diagnosis: AURORA on CKD Interval history: Pt was seen/examined earlier today. She did not affirm N/V/D, or other major complaints. She reported feeling much better and has been able to ambulate to the bedside commode, she reported. She is hard of hearing. Objective - Vital Signs Vital signs: Vital Signs Temp Pulse Resp BP Pulse Ox 07/24/16 10:39 97.7 F 73 18 130/84 95 07/24/16 04:22 97.6 F 68 16 87/62 96 07/23/16 23:02 97.6 F 70 16 112/70 99 07/23/16 20:30 96 07/23/16 19:06 98.1 F 60 16 122/90 96 07/23/16 14:35 97.8 F 70 16 116/70 100 Intake and Output 07/23/16 07/24/16 07/24/16 23:59 07:59 15:59 Intake Total 100 / 100 100 / 100 480 / 480 Output Total 0 / 0 600 / 600 0 / 0 Balance 100 / 100 -500 / -500 480 / 480 Intake: IV Fluids 100 / 100 100 / 100 Ampicillin 1,000 MG In 0. 100 / 100 100 / 100 9 % Sodium Chloride (Mini -Bag +) 100 ML @ 200 mls/ hr IVPB Q6HR [facility] Rx#: [id number] Oral 0 / 0 0 / 0 480 / 480 Output: Urine 0 / 0 0 / 0 0 / 0 Urine/Stool Mix 600 / 600 Other: Meal Breakfast Percent of Meal Consumed 75% # Bowel Movements 0 0 Weight 103.419 kg Patient Weight 07/24/16 23:59 Weight 103.419 kg - General Appearance General appearance: Present: well-developed, well-nourished, appears started age , obese, chronically ill Exam: She was seen sitting in the chair EENT: Present: ATNC, PERRL Neck: Present: supple Respiratory: Present: clear Cardiology: Present: holosystolic murmur, edema, normal S1, normal S2 Gastrointestinal: Present: normoactive bowel sounds, no guarding Integumentary: Present: ulcer, erythema, ecchymotic Neurologic: Present: no focal deficit (except Hard of Hearing (chronic)), no asterixis, alert and oriented x3 Musculoskeletal: Present: no clubbing Psychiatric: Present: cooperative - Lab 07/24/16 04:05 07/24/16 04:05 Most recent lab results Calcium 8.5 mg/dL (8.6-10.8) L 07/24/16 04:05 Magnesium 2.4 mg/dL (1.6-2.6) 07/20/16 05:45 Urine Creatinine 98 mg/dL 07/19/16 11:58 Urine Sodium < 20.0 mEq/L 07/19/16 11:58 Consult Discharge Plan - Plan Referrals: Maulik Handley MD [Primary Care Provider] -
[2016-07-24] MEDS: *HR* OxyCODONE/APAP 5/325 TABLET PO PRN ×2 (17:13→23:30)
[2016-07-24 18:18] LABS: Phosphorous 3.4 mg/dL (2.3-4.7)
[2016-07-25] MEDS: Ampicillin 1,000 MG in 0.9 % Sodium Chloride Mini Bag 100 ML IVPB SCH ×4 (04:57→23:25)
[2016-07-25 05:35] LABS: Hemoglobin 12.2 g/dL (11.5-15.4)
[2016-07-25 05:37] LABS: Basophils % 0.4 %; Eosinophils # 0.3 K/mcL (0.0-0.6); Eosinophils % 5.4 %; Hematocrit 38.6 % (35.3-44.9); Immature Granulocytes % 0.9 % (0-4); Lymphocytes # 0.9 K/mcL (0.6-4.6); Lymphocytes % 16.2 %; Mean Corpuscular HGB Conc 31.6 g/dL (31.6-35.5); Mean Corpuscular Hemoglobin 30.7 pg (28.0-33.3); Mean Platelet Volume 10.5 fL (9.4-12.4); Monocytes # 0.9 K/mcL (0.0-1.3); Neutrophils # 3.4 K/mcL (1.6-8.9); Nucleated Red Blood Cells 0.5 /100 WBC (0); Platelet Count 80 K/mcL (140-400); Red Blood Count 3.98 M/mcL (3.82-4.97); Red Cell Distribution Width 17.4 % (11.5-14.5); Segmented Neutrophils % 61.1 %
[2016-07-25] MEDS: *HR* Heparin 5,000 UNIT/ML VIAL SQ SCH ×2 (05:42→19:29)
[2016-07-25 05:51] LABS: Potassium 4.1 mEq/L (3.5-4.5)
[2016-07-25 05:52] LABS: Calcium 8.6 mg/dL (8.6-10.8); Magnesium 1.9 mg/dL (1.6-2.6); Phosphorous 2.8 mg/dL (2.3-4.7)
[2016-07-25] MEDS: *HR* Amiodarone 200 MG TABLET PO SCH (08:15)
[2016-07-25] MEDS: Silvasorb 44.4 ML TUBE TP SCH (08:15)
[2016-07-25] MEDS: Aspirin 325 MG TABLET PO SCH (08:15)
[2016-07-25 08:28] LABS: ANA IgG IFA Titer <1:40 (<1:40)
--- NOTE | 2016-07-25 09:31 | Nephrology Progress Note ---
Date of Encounter: 07/25/16 Time of Encounter: 09:29 - Assessment and Plan (1) Acute kidney injury superimposed on chronic kidney disease Current Visit: Yes Status: Acute Scr much better, down from 2.32 yesterday to 1.82 today GFR back to baseline of 27 (2) Lower extremity cellulitis Current Visit: Yes Status: Acute per primary team Qualifiers: Laterality: unspecified laterality Qualified Code(s): L03.119 - Cellulitis of unspecified part of limb (3) CKD (chronic kidney disease), stage IV Current Visit: Yes Status: Chronic Follow up with nephrology after discharge BMP 1 week after discharge Avoid nephrotoxins if possible Subjective Principal diagnosis: AURORA on CKD Interval history: Patient seen and examined. States she is feeling well this morning. Objective - Vital Signs Vital signs: Vital Signs Temp Pulse Resp BP Pulse Ox 07/25/16 06:42 98.3 F 81 18 117/68 98 07/25/16 03:53 98.2 F 84 18 112/63 96 07/25/16 00:28 98.2 F 77 18 113/71 99 07/24/16 19:35 98.3 F 80 18 122/64 97 07/24/16 14:42 97.6 F 80 18 134/84 97 07/24/16 10:39 97.7 F 73 18 130/84 95 Intake and Output 07/24/16 07/25/16 07/25/16 23:59 07:59 15:59 Intake Total 220 / 220 420 / 420 480 / 480 Output Total 400 / 400 0 / 0 Balance -180 / -180 420 / 420 480 / 480 Intake: IV Fluids 100 / 100 200 / 200 Ampicillin 1,000 MG In 0. 100 / 100 200 / 200 9 % Sodium Chloride (Mini -Bag +) 100 ML @ 200 mls/ hr IVPB Q6HR [facility] Rx#: [id number] Oral 120 / 120 220 / 220 480 / 480 Output: Urine 0 / 0 0 / 0 Urine/Stool Mix 400 / 400 Other: Meal Dinner Breakfast Percent of Meal Consumed 40% 100% Stool Size Moderate Stool Consistency loose Stool Color Brown # Voids 1 # Bowel Movements 0 Weight 103.4 kg Patient Weight 07/25/16 23:59 Weight 103.4 kg - General Appearance General appearance: Present: well-developed, well-nourished, obese EENT: Present: ATNC, mucous membranes moist Neck: Present: supple Respiratory: Present: clear Cardiology: Present: holosystolic murmur, edema, normal S1, normal S2 Gastrointestinal: Present: no guarding, obese Integumentary: Present: warm and dry Neurologic: Present: alert and oriented x3 Psychiatric: Present: mood/affect appropriate, cooperative - Lab 07/25/16 05:19 07/25/16 05:19 Most recent lab results Calcium 8.6 mg/dL (8.6-10.8) 07/25/16 05:19 Phosphorus 2.8 mg/dL (2.3-4.7) 07/25/16 05:19 Magnesium 1.9 mg/dL (1.6-2.6) 07/25/16 05:19 Urine Creatinine 98 mg/dL 07/19/16 11:58 Urine Sodium < 20.0 mEq/L 07/19/16 11:58 Consult Discharge Plan - Plan Referrals: Maulik Handley MD [Primary Care Provider] -
--- NOTE | 2016-07-25 10:34 | Internal Med Progress Note ---
Date of Encounter: 07/25/16 Time of Encounter: 10:31 - Assessment and plan (1) Acute kidney injury superimposed on chronic kidney disease Current Visit: Yes Status: Acute Assessment and plan: Patient has history of stage IV CKD Holding nephrotoxic agents at this time Nephrology greatly appreciated Kidney function improving, as per renal records, appears to be at baseline GFR today Continue to monitor (2) Lower extremity cellulitis Current Visit: Yes Status: Acute Assessment and plan: Patient noted to have history of chronic lower extremity venous stasis with recurrent cellulitis Currently responding well to ampicillin and daily wound care Venous Dopplers negative for lower extremity DVT Continue IV antibiotic coverage with ampicillin at this time to complete therapy for a total of 14 days (Day 10/29) discharge pending SNF placement Qualifiers: Laterality: unspecified laterality Qualified Code(s): L03.119 - Cellulitis of unspecified part of limb (3) Morbidly obese Current Visit: Yes Status: Chronic Qualifiers: Obesity type: unspecified obesity type Qualified Code(s): E66.01 - Morbid ( severe) obesity due to excess calories (4) DVT prophylaxis Current Visit: Yes Status: Acute Assessment and plan: Heparin SQ (5) Hypertension Current Visit: Yes Status: Chronic Assessment and plan: BP within acceptable range continue to monitor Qualifiers: Hypertension type: essential hypertension Qualified Code(s): I10 - Essential (primary) hypertension - Subjective Interval history: Patient seen and examined, resting comfortably in chair. Reports feeling better compared to the previous day. Patient currently AAOx 3 at this time however noted to have underlying dementia and her mental status waxes and wanes. No overnight issues reported. D/c pending SNF placement - Constitutional Vitals: Temp Pulse Resp BP Pulse Ox 98.3 F 81 18 117/68 98 07/25/16 06:42 07/25/16 06:42 07/25/16 06:42 07/25/16 06:42 07/25/16 06:42 General appearance: Present: A&O X 3, morbidly obese, pleasant. Absent: answers questions appropriately - Head Head exam: Present: atraumatic, normocephalic - Eye Eye exam: Present: normal appearance, conjuntiva pink, sclera anicteric - Respiratory Respiratory exam: Present: CTAB. Absent: respiratory distress, wheezes - Cardiovascular Cardiovascular exam: Present: RRR, +S1, +S2 - GI/Abdominal GI/Abdominal exam: Present: normal bowel sounds, soft. Absent: tenderness - Extremities Exam Extremities exam: Present: pedal edema (bilateral lower extremity edema ), warm , radial pulses palpable and symetrical. Absent: calf tenderness - Neurological Exam Neurological exam: Present: alert, oriented X3 Internal Medicine: Result - Labs CBC & Chem 7: 07/25/16 05:19 07/25/16 05:19 Labs: Short CBC 07/25/16 Range/Units 05:19 WBC 5.6 (4.3-11.1) K/mcL Hgb 12.2 (11.5-15.4) g/dL Hct 38.6 (35.3-44.9) % Plt Count 80 L (140-400) K/mcL Neutrophils # 3.4 (1.6-8.9) K/mcL BMP 07/24/16 07/25/16 04:05 05:19 Sodium 142 141 Potassium 4.6 H 4.1 Chloride 113 H 111 H Carbon Dioxide 19 20 BUN 51 H 43 H Creatinine 2.32 H 1.82 H Glucose 92 92 Calcium 8.5 L 8.6 - ABG Interpretation ABG results: PT/INR, D-dimer PT 14.8 Seconds (9.4-12.1) H 07/19/16 05:35 Consult Discharge Plan - Plan Referrals: Maulik Handley MD [Primary Care Provider] - Prescriptions: Ampicillin Sodium 1 gm IV Q6H #18 vial.port
[2016-07-25] MEDS: *HR* OxyCODONE/APAP 5/325 TABLET PO PRN (22:34)
[2016-07-26 05:36] LABS: Hemoglobin 11.4 g/dL (11.5-15.4); Mean Corpuscular Hemoglobin 31.1 pg (28.0-33.3); Mean Corpuscular Volume 94.8 fL (83.0-100.0); Red Cell Distribution Width 17.5 % (11.5-14.5)
[2016-07-26 05:38] LABS: Basophils % 0.5 %; Eosinophils # 0.2 K/mcL (0.0-0.6); Eosinophils % 3.1 %; Hematocrit 34.7 % (35.3-44.9); Immature Granulocytes % 1.5 % (0-4); Lymphocytes # 1.2 K/mcL (0.6-4.6); Lymphocytes % 17.9 %; Mean Corpuscular HGB Conc 32.9 g/dL (31.6-35.5); Mean Platelet Volume 9.7 fL (9.4-12.4); Monocytes # 1.2 K/mcL (0.0-1.3); Nucleated Red Blood Cells 0.5 /100 WBC (0); Red Blood Count 3.66 M/mcL (3.82-4.97)
[2016-07-26 05:46] LABS: Neutrophils # 3.8 K/mcL (1.6-8.9); Platelet Count 93 K/mcL (140-400)
[2016-07-26 05:54] LABS: Calcium 8.1 mg/dL (8.6-10.8); Magnesium 1.9 mg/dL (1.6-2.6); Potassium 4.4 mEq/L (3.5-4.5)
[2016-07-26] MEDS: Ampicillin 1,000 MG in 0.9 % Sodium Chloride Mini Bag 100 ML IVPB SCH (06:09)
[2016-07-26] MEDS: *HR* Heparin 5,000 UNIT/ML VIAL SQ SCH (06:10)
[2016-07-26 08:26] VITALS: BP 126/74
[2016-07-26] MEDS: *HR* Amiodarone 200 MG TABLET PO SCH (08:37)
[2016-07-26] MEDS: Aspirin 325 MG TABLET PO SCH (08:37)
--- NOTE | 2016-07-26 09:22 | Discharge Summary ---
Date of Encounter: 07/26/16 Time of Encounter: 09:00 - Discharge Diagnosis (1) Acute kidney injury superimposed on chronic kidney disease Priority: Primary Status: Acute (2) Lower extremity cellulitis Priority: Primary Status: Acute Qualifiers: Laterality: unspecified laterality Qualified Code(s): L03.119 - Cellulitis of unspecified part of limb (3) Morbidly obese Priority: Secondary Status: Chronic Qualifiers: Obesity type: unspecified obesity type Qualified Code(s): E66.01 - Morbid ( severe) obesity due to excess calories (4) DVT prophylaxis Priority: Secondary Status: Acute (5) Hypertension Priority: Secondary Status: Chronic Qualifiers: Hypertension type: essential hypertension Qualified Code(s): I10 - Essential (primary) hypertension - Discharge Medications Prescriptions: OxyCODONE/APAP 5/325 [Percocet 5/325 MG] 2 each PO Q6HR PRN #20 tablet PRN Reason: Pain Home Medications: Albuterol Sulfate [Proair Hfa] 2 puff IH QID PRN 07/18/16 [History] Amiodarone [Cordarone] 200 mg PO DAILY 07/18/16 [History] Beclomethasone Diprop 80mcg [QVAR 80 mcg] 1 puff IH BID 07/18/16 [History] Metolazone [Zaroxolyn] 5 mg PO DAILY PRN 07/18/16 [History] Aspirin [Ecotrin] 325 mg PO DAILY 07/19/16 [History] Ampicillin Sodium 1 gm IV Q6H #18 vial.port 07/25/16 [Rx] OxyCODONE/APAP 5/325 [Percocet 5/325 MG] 2 each PO Q6HR PRN #20 tablet 07/26/16 [Rx] Allergies/Adverse Reactions: Allergies No Known Allergies Allergy (Unverified 02/25/15 15:26) Date of admission: 07/25/16 13:31 Primary care physician: Maulik Handley MD Consults: Nephrology: Dr. Bingham Discharging clinician: Ricarda Saucedo Anticipated date of discharge: 07/26/16 - Patient Status Disposition: Transfer SNF Condition: Good Functional capacity at discharge: uses cane/walker Overall status at discharge: patient is back to baseline - Discharge Instructions Follow Up With: Maulik Handley MD [Primary Care Provider] - Additional Instructions: Please follow-up with your primary care physician within one week after discharge from the hospital. Please follow up with lang path therapist within 5 days after discharge from the hospital. Please obtain the prescribed lab work prior to your appointment with your primary lang path therapist. Please continue IV antibiotics as prescribed. Due to your acute kidney injury, your home dose of Lasix has been placed on hold. Please consult your lang path therapist prior to restarting this medication. Upon arriving to the hospital you were found to be hypotensive, due to which metoprolol was placed on hold. Your blood pressure has remained within normal limits without being on metoprolol throughout the course of the hospitalization. At this time continue to hold metoprolol 100 mg twice a day. If you are found to have high blood pressure (SBP> 150) at the rehabilitation facility, please restart metoprolol. Please continue daily wound care. Please continue all your other home medications as prescribed by your primary care physician. - Diet and Activity Activity: as per physical therapy Diet: low fat, low cholesterol, low salt diet Hospital course: Ms. Beach is a 80 year old female with PMH of CHF, asthma, arthritis, HLD, HTN , CKD, anxiety, depression, chronic venous stasis, and morbid obesity who was admitted for management of bilateral lower extremity edema/cellulitis, acute on chronic kidney injury, acute metabolic encephalopathy, and hypotension. Patient was started on IV antibiotics and her home medications were placed on hold (Lasix and metoprolol). Patient was receiving daily wound care. Her mental status returned to baseline after initiation of treatment, and as per family patient's mental status waxes and wanes. She was also evaluated by physical therapy and rehabilitation placement was recommended. Patient has history of bilateral chronic venous stasis and recurrent cellulitis due to which she will benefit from therapy with IV antibiotics for total of 14 days. Has responded well to current antibiotic treatment, and we will continue the antibiotic treatment at the rehabilitation facility. Her initial hypotension resolved and her blood pressure has remained within acceptable range throughout the course of her admission. She has not required any of her antihypertensive medications throughout the course of her admission. We will continue to hold her metoprolol and Lasix dosage at this time. Nephrology was consulted for patient's acute kidney injury. Patient's kidney function has significantly improved and appears to be at baseline at this time. Patient is to continue IV antibiotics at the rehabilitation facility and is to follow up with nephrology within 5 days after her discharge. She is to obtain lab work prior to her appointment with her lang path therapist. She is to follow-up with her primary care physician after discharge. Patient will be discharged to rehabilitation facility today. Patient and family demonstrate understanding of her care plan and discharge planning. - Time Spent with Patient Total time spent providing and/or coordinating discharge services: - Constitutional Vitals: Temp Pulse Resp BP Pulse Ox 99.0 F 90 18 126/74 94 L 07/26/16 08:14 07/26/16 08:14 07/26/16 08:14 07/26/16 08:14 07/26/16 08:14 General appearance: Present: A&O X 3, morbidly obese, pleasant, no acute distress - Head Head exam: Present: atraumatic, normocephalic - Eye Eye exam: Present: conjuntiva pink, sclera anicteric - Respiratory Respiratory exam: Absent: respiratory distress, wheezes - Cardiovascular Cardiovascular exam: Present: RRR, +S1, +S2 - GI/Abdominal GI/Abdominal exam: Present: normal bowel sounds, soft. Absent: tenderness - Extremities Exam Extremities exam: Present: pedal edema (bilateral LE edema, b/l UE diffuse bruising), warm, radial pulses palpable and symetrical - Neurological Exam Neurological exam: Present: alert, oriented X3 - Psychiatric Psychiatric exam: Present: normal affect, normal mood
--- NOTE | 2016-07-26 09:31 | Physician Discharge Referral ---
ExtendedCare Referral Info Transfer To: SNF Provider in Charge after Transfer: PCP - Diagnosis (1) Acute kidney injury superimposed on chronic kidney disease Priority: Primary Status: Acute (2) Lower extremity cellulitis Priority: Primary Status: Acute (3) Morbidly obese Priority: Secondary Status: Chronic (4) DVT prophylaxis Priority: Secondary Status: Acute (5) Hypertension Priority: Secondary Status: Chronic - Transfer Medications Prescriptions: OxyCODONE/APAP 5/325 [Percocet 5/325 MG] 2 each PO Q6HR PRN #20 tablet PRN Reason: Pain Home Medications: Albuterol Sulfate [Proair Hfa] 2 puff IH QID PRN 07/18/16 [History] Amiodarone [Cordarone] 200 mg PO DAILY 07/18/16 [History] Beclomethasone Diprop 80mcg [QVAR 80 mcg] 1 puff IH BID 07/18/16 [History] Metolazone [Zaroxolyn] 5 mg PO DAILY PRN 07/18/16 [History] Aspirin [Ecotrin] 325 mg PO DAILY 07/19/16 [History] Ampicillin Sodium 1 gm IV Q6H #18 vial.port 07/25/16 [Rx] OxyCODONE/APAP 5/325 [Percocet 5/325 MG] 2 each PO Q6HR PRN #20 tablet 07/26/16 [Rx] Allergies/Adverse Reactions: Allergies No Known Allergies Allergy (Unverified 02/25/15 15:26) - Respiratory Orders Smoking Cessation: Smoking cessation has been advised. For more information, call the [place] Tobacco Quit Line at 0-897-CZKH-NOW. - Lab Orders Lab Orders: Other (include drug levels w/frequency) (BMP prior to follow up with ammunition assembly laborer to monitor Kidney function) - Rehabiliation Orders Other: Please follow-up with your primary care physician within one week after discharge from the hospital. Please follow up with ammunition assembly laborer within 5 days after discharge from the hospital. Please obtain the prescribed lab work prior to your appointment with your primary ammunition assembly laborer. Please continue IV antibiotics as prescribed. Due to your acute kidney injury, your home dose of Lasix has been placed on hold. Please consult your ammunition assembly laborer prior to restarting this medication. Upon arriving to the hospital you were found to be hypotensive, due to which metoprolol was placed on hold. Your blood pressure has remained within normal limits without being on metoprolol throughout the course of the hospitalization. At this time continue to hold metoprolol 100 mg twice a day. If you are found to have high blood pressure (SBP> 150) at the rehabilitation facility, please restart metoprolol. Please continue daily wound care. Please continue all your other home medications as prescribed by your primary care physician. CERTIFICATION: I certify that the transfer of the above named patient to an Extended Care Facility is necessary for the continuing treatment of the diagnosis listed. The above information is true and accurate reflection of patient's current condition. Confidential - Redisclosure prohibited without a patient's written consent.
[2016-07-26] MEDS: Silvasorb 44.4 ML TUBE TP SCH (09:55)
[2016-07-26] MEDS: *HR* OxyCODONE/APAP 5/325 TABLET PO PRN (10:36)
[2016-07-26 11:19] LABS: Cryoglobulin POS 24HOUR (NEG 72Hour)
== END 2016-07-26 10:44 | DRG 682 ==
LOC: EMEROO 17:05 → 3ANU 17:05 → SUATTDRO 22:26 → 3ANU 22:58
PROVIDERS: ADMIT Pediatrics; ATTEND Internal Medicine

== ENCOUNTER 2016-08-07 03:38 | Inpatient (IN) ==
[2016-08-07] MEDS ORDERED: *HR* Atropine Sulfate 1 MG/10 ML SYRINGE IVP STA (04:05)
--- NOTE | 2016-08-07 04:34 | Emergency Department Note ---
Disposition Clinical Impression: Myxedema coma, Renal failure, Increased ammonia level, Elevated bilirubin, Bradycardia, Hyperkalemia Hypothermia Qualifiers: Encounter type: initial encounter Qualified Code(s): T68.XXXA - Hypothermia, initial encounter Disposition: Admitted As Inpatient Condition: Serious Nausea/Vomiting/Diarrhea HPI - General Chief complaint: ED Nausea/Vomiting/Diarrhea Stated complaint: nausea Time Seen by Provider: 08/07/16 03:43 Source: EMS Limitations: altered mental status Nursing Notes Reviewed: Yes Vital Signs Reviewed: Yes - History of Present Illness HPI Narrative: Patient here for evaluation of nausea and vomiting. Patient has come from the senior care. There is limited information about the patient at this time. EMS arrived and found the patient to be difficult to have heart rate capture on monitor. Initially they are concerned about asystole patient was able to respond to them. Patient was bradycardic with a rate in the 40s. Patient complaining of nausea vomiting and feeling shingles getting sick. Is not able to extrapolate on any other history. Patient has a PICC line in place but no antibiotics on her list of medications. Medications do include amiodarone as well as metoprolol and multiple doses of Zofran. He reported being treated for skin infection however there is no antibiotics listed on medication sheet. - Related Data Home Medications Medication Instructions Recorded Confirmed Amiodarone [Cordarone] 300 mg PO DAILY 08/07/16 08/07/16 Aspirin 325 mg PO DAILY 08/07/16 08/07/16 Beclomethasone Diprop 80mcg [Qvar 2 puff IH BID 08/07/16 08/07/16 80 mcg] Famotidine [Pepcid] 20 mg PO DAILY 08/07/16 08/07/16 L.acidoph,Paracasei, B.lactis 1 each PO DAILY 08/07/16 08/07/16 [Probiotic] Metoprolol [Lopressor] 50 mg PO BID 08/07/16 08/07/16 Allergies Allergy/AdvReac Type Severity Reaction Status Date / Time No Known Allergies Allergy Unverified 02/25/15 15:26 Review of Systems: Nausea and vomiting Limitations: ROS unobtainable due to patients medical condition Past Medical History - Past Medical History Medical history: Reports: asthma, CHF, hyperlipidemia, hypertension, renal disease Surgical history: Reports: cholecystectomy Psychiatric history: Reports: no psych history - Social History Smoking Status: Former smoker Smokeless Tobacco Status: No Alcohol use: Reports: none Drug use: Reports: none Physical Exam - General Limitations: altered mental status General appearance: anxious - Head Head exam: atraumatic, normocephalic - Eye Eye exam: Present: normal appearance - ENT ENT exam: normal exam - Neck Neck exam: Present: normal inspection - Chest Chest inspection: Present: normal inspection, symmetric chest wall rise - Respiratory Respiratory exam: Present: normal lung sounds bilaterally. Absent: respiratory distress, wheezes - Cardiovascular Cardiovascular exam: Present: bradycardia - Abdominal Exam Abdominal exam: Present: soft, Non-Tender, other (abrasions over abdomen) - Extremities Exam Extremities exam: Present: normal inspection - Expanded Neurological Exam Patient oriented to: Present: person Speech: Present: fluid speech Cranial nerves: EOM function (II, III, IV, ): Normal, facial sensation (V): Normal, facial palsy (VII): Normal, gag reflex (IX): Normal, tongue deviation ( XII): Normal Coma Scale Eye Opening: Spontaneous Coma Scale Motor Response: Obeys Commands Coma Scale Verbal Response: Oriented Coma Scale Total: 15 - Skin Skin exam: Present: other (Lower extremities with multiple ischemic ulcers. Left dorsal aspect of the foot is the worst.) Course - Reevaluation(s) Reevaluation #1: Patient's mental status significantly improved throughout her emergency stay from her arrival. Patient did not respond to atropine however she has made stable and does seem to be much more conversive. Upon calling the senior care , the only useful information is that this is an acute change from baseline is she is usually very talkative and lively. Other useful information provided was that she was treated for a skin infection including vancomycin and unknown antibiotic. - Consultations Consultation #1: Discussed case with Dr. Wells after the arrival of labs. Concern at this point is for possible myxedema coma as well as acute renal failure which could be precipitated from possible vancomycin that she had received in the senior care with last dose approximately 2 days ago. Pericardial effusion was ruled out at bedside with ultrasound. Patient did have an episode of hypertension that was resolved with placement of blood pressure cuff. Patient's ammonia was treated with lactulose. Potassium was treated with albuterol, IV insulin and dextrose as well as calcium and Kayexalate. Lactulose given for ammonia level. Zosyn given for concern of possible pneumonia as well as UTI. Synthroid and steroids given for elevated TSH in the setting of possible myxedema coma with small QRS complexes, bradycardia, hypothermia and skin changes. Patient will be placed in the ICU for further evaluation and treatment. Vital Signs Temperature 96.0 F L 08/07/16 03:42 Pulse Rate 42 08/07/16 03:42 Respiratory Rate 16 08/07/16 03:42 Blood Pressure 150/141 08/07/16 03:42 O2 Sat by Pulse Oximetry 90 L 08/07/16 03:42 Temperature 96.0 F L 08/07/16 03:42 Pulse Rate 47 08/07/16 07:30 Respiratory Rate 18 08/07/16 07:32 Blood Pressure 135/66 08/07/16 07:32 O2 Sat by Pulse Oximetry 100 08/07/16 07:30 Oxygen Delivery Oxygen Delivery Nasal Cannula Nausea/Vomiting/Diarrhea - Lab Data Result diagrams: 08/07/16 04:46 08/07/16 05:07 Lab Results 08/07/16 08/07/16 08/07/16 Range/Units 04:10 04:10 04:46 WBC 6.4 (4.3-11.1) K/mcL RBC 4.16 (3.82-4.97) M/mcL Hgb 13.1 (11.5-15.4) g/dL Hct 42.1 (35.3-44.9) % MCV 101.2 H D (83.0-100.0) fL MCH 31.5 (28.0-33.3) pg MCHC 31.1 L (31.6-35.5) g/dL RDW 23.0 H (11.5-14.5) % Plt Count 254 (140-400) K/mcL MPV 10.0 (9.4-12.4) fL Immature Gran % 3.4 (0-4) % Seg Neutrophils % 69.6 % Lymphocytes % 11.2 % Monocytes % 11.9 % Eosinophils % 3.1 % Basophils % 0.8 % Neutrophils # 4.5 (1.6-8.9) K/mcL Lymphocytes # 0.7 (0.6-4.6) K/mcL Monocytes # 0.8 (0.0-1.3) K/mcL Eosinophils # 0.2 (0.0-0.6) K/mcL Basophils # 0.1 (0.0-0.2) K/mcL Nucleated RBCs/100 WBC 2.3 H (0) /100 WBC Immature Plt Fraction 2.0 (1.1-6.1) % PT (9.4-12.1) Seconds INR Sodium (136-145) mEq/L Potassium (3.5-4.5) mEq/L Chloride (98-109) mEq/L Carbon Dioxide (19-29) mEq/L BUN (7-20) mg/dL Creatinine (0.57-1.11) mg/dL Est GFR ( Amer) (> 60) Est GFR (Non-Af Amer) (> 60) BUN/Creatinine Ratio (6-26) Glucose (70-99) mg/dL Calculated Osmolality (280-300) Lactic Acid 2.0 (0.5-2.2) mmol/L Calcium (8.6-10.8) mg/dL Phosphorus (2.3-4.7) mg/dL Magnesium (1.6-2.6) mg/dL Total Bilirubin (0.2-1.2) mg/dL Direct Bilirubin (0.0-0.5) mg/dL Indirect Bilirubin (0.0-1.2) mg/dL AST (5-34) Units/L ALT (0-55) Units/L Alkaline Phosphatase (38-126) Units/L Ammonia (18-72) mcmol/L Creatine Kinase (29-168) Units/L Troponin I 0.03 (0-0.03) ng/mL Serum Total Protein (6.0-8.3) g/dL Albumin (3.5-5.0) g/dL Globulin (2.4-3.5) g/dL Albumin/Globulin Ratio (1.1-2.2) TSH (0.350-4.840) mcIU/mL Urine Color (Yellow) Urine Clarity (Clear) Urine pH (5.0-8.0) pH Units Ur Specific [place] (1.010-1.025) Urine Protein (Neg-Trace) mg/dL Urine Glucose (UA) (Normal) mg/dL Urine Ketones (Negative) mg/dL Urine Blood (Negative) Urine Nitrite (Negative) Urine Bilirubin (Negative) Urine Urobilinogen (Normal) mg/dL Ur Leukocyte Esterase (Negative) Urine Microscopic RBC (0-3) per hpf Urine Microscopic WBC (0-3) per hpf Ur Squamous Epith Cells (None-Few) per lpf Urine Bacteria (None-Few) per hpf Hyaline Casts (None-Few) per lpf Urine Yeast (None Seen) per hpf Ur Culture Indicated? (NO) 08/07/16 08/07/16 08/07/16 Range/Units 04:46 05:07 05:07 WBC (4.3-11.1) K/mcL RBC (3.82-4.97) M/mcL Hgb (11.5-15.4) g/dL Hct (35.3-44.9) % MCV (83.0-100.0) fL MCH (28.0-33.3) pg MCHC (31.6-35.5) g/dL RDW (11.5-14.5) % Plt Count (140-400) K/mcL MPV (9.4-12.4) fL Immature Gran % (0-4) % Seg Neutrophils % % Lymphocytes % % Monocytes % % Eosinophils % % Basophils % % Neutrophils # (1.6-8.9) K/mcL Lymphocytes # (0.6-4.6) K/mcL Monocytes # (0.0-1.3) K/mcL Eosinophils # (0.0-0.6) K/mcL Basophils # (0.0-0.2) K/mcL Nucleated RBCs/100 WBC (0) /100 WBC Immature Plt Fraction (1.1-6.1) % PT 15.7 H (9.4-12.1) Seconds INR 1.4 Sodium 136 (136-145) mEq/L Potassium 6.0 H (3.5-4.5) mEq/L Chloride 108 (98-109) mEq/L Carbon Dioxide 11 L (19-29) mEq/L BUN 74 H (7-20) mg/dL Creatinine 5.33 H (0.57-1.11) mg/dL Est GFR ( Amer) 9 L (> 60) Est GFR (Non-Af Amer) 8 L (> 60) BUN/Creatinine Ratio 14 (6-26) Glucose 84 (70-99) mg/dL Calculated Osmolality 303 H (280-300) Lactic Acid (0.5-2.2) mmol/L Calcium 8.4 L (8.6-10.8) mg/dL Phosphorus 6.6 H (2.3-4.7) mg/dL Magnesium 2.8 H (1.6-2.6) mg/dL Total Bilirubin 3.7 H (0.2-1.2) mg/dL Direct Bilirubin 2.1 H (0.0-0.5) mg/dL Indirect Bilirubin 1.6 H (0.0-1.2) mg/dL AST 52 H (5-34) Units/L ALT 25 (0-55) Units/L Alkaline Phosphatase 145 H (38-126) Units/L Ammonia 117 H (18-72) mcmol/L Creatine Kinase 54 (29-168) Units/L Troponin I (0-0.03) ng/mL Serum Total Protein 6.8 (6.0-8.3) g/dL Albumin 2.9 L (3.5-5.0) g/dL Globulin 3.9 H (2.4-3.5) g/dL Albumin/Globulin Ratio 0.7 L (1.1-2.2) TSH 9.392 H (0.350-4.840) mcIU/mL Urine Color (Yellow) Urine Clarity (Clear) Urine pH (5.0-8.0) pH Units Ur Specific [place] (1.010-1.025) Urine Protein (Neg-Trace) mg/dL Urine Glucose (UA) (Normal) mg/dL Urine Ketones (Negative) mg/dL Urine Blood (Negative) Urine Nitrite (Negative) Urine Bilirubin (Negative) Urine Urobilinogen (Normal) mg/dL Ur Leukocyte Esterase (Negative) Urine Microscopic RBC (0-3) per hpf Urine Microscopic WBC (0-3) per hpf Ur Squamous Epith Cells (None-Few) per lpf Urine Bacteria (None-Few) per hpf Hyaline Casts (None-Few) per lpf Urine Yeast (None Seen) per hpf Ur Culture Indicated? (NO) 08/07/16 Range/Units 05:15 WBC (4.3-11.1) K/mcL RBC (3.82-4.97) M/mcL Hgb (11.5-15.4) g/dL Hct (35.3-44.9) % MCV (83.0-100.0) fL MCH (28.0-33.3) pg MCHC (31.6-35.5) g/dL RDW (11.5-14.5) % Plt Count (140-400) K/mcL MPV (9.4-12.4) fL Immature Gran % (0-4) % Seg Neutrophils % % Lymphocytes % % Monocytes % % Eosinophils % % Basophils % % Neutrophils # (1.6-8.9) K/mcL Lymphocytes # (0.6-4.6) K/mcL Monocytes # (0.0-1.3) K/mcL Eosinophils # (0.0-0.6) K/mcL Basophils # (0.0-0.2) K/mcL Nucleated RBCs/100 WBC (0) /100 WBC Immature Plt Fraction (1.1-6.1) % PT (9.4-12.1) Seconds INR Sodium (136-145) mEq/L Potassium (3.5-4.5) mEq/L Chloride (98-109) mEq/L Carbon Dioxide (19-29) mEq/L BUN (7-20) mg/dL Creatinine (0.57-1.11) mg/dL Est GFR ( Amer) (> 60) Est GFR (Non-Af Amer) (> 60) BUN/Creatinine Ratio (6-26) Glucose (70-99) mg/dL Calculated Osmolality (280-300) Lactic Acid (0.5-2.2) mmol/L Calcium (8.6-10.8) mg/dL Phosphorus (2.3-4.7) mg/dL Magnesium (1.6-2.6) mg/dL Total Bilirubin (0.2-1.2) mg/dL Direct Bilirubin (0.0-0.5) mg/dL Indirect Bilirubin (0.0-1.2) mg/dL AST (5-34) Units/L ALT (0-55) Units/L Alkaline Phosphatase (38-126) Units/L Ammonia (18-72) mcmol/L Creatine Kinase (29-168) Units/L Troponin I (0-0.03) ng/mL Serum Total Protein (6.0-8.3) g/dL Albumin (3.5-5.0) g/dL Globulin (2.4-3.5) g/dL Albumin/Globulin Ratio (1.1-2.2) TSH (0.350-4.840) mcIU/mL Urine Color [place] A (Yellow) Urine Clarity Cloudy A (Clear) Urine pH 5.0 (5.0-8.0) pH Units Ur Specific [place] 1.026 H (1.010-1.025) Urine Protein 30 H (Neg-Trace) mg/dL Urine Glucose (UA) Normal (Normal) mg/dL Urine Ketones Trace H (Negative) mg/dL Urine Blood Negative (Negative) Urine Nitrite Positive A (Negative) Urine Bilirubin Moderate H (Negative) Urine Urobilinogen Normal (Normal) mg/dL Ur Leukocyte Esterase Small H (Negative) Urine Microscopic RBC 3-5 H (0-3) per hpf Urine Microscopic WBC 5-15 H (0-3) per hpf Ur Squamous Epith Cells Many H (None-Few) per lpf Urine Bacteria Many H (None-Few) per hpf Hyaline Casts Few (None-Few) per lpf Urine Yeast Many H (None Seen) per hpf Ur Culture Indicated? YES A (NO) Critical Care Time Critical Care Time: Yes Total Critical Care Time: 90 Attestation: Critical care performed: Time is exclusive of separately billable procedures. Time includes: direct patient care, patient reassessment, coordination of patient care, interpretation of data (laboratory data, radiology data, and respiratory data), review of patient's medical records, medical consultation and documentation of patient care. Procedures included in critical care time: Procedures excluded from critical care time: Attestation Statement - Attestation Attestation: I, Masood Tyson MD, personally performed a history and physical exam of the patient and discussed their management with the resident. I reviewed the resident's note and agree with the documented findings, medical decision making , and plan of care. 80-year-old female sent to the emergency department from a local senior care for evaluation of nausea and vomiting and altered mental status. Also low heart rate and low oxygen. Patient has been in the senior care receiving IV antibiotics for cellulitis. She apparently just finished IV vancomycin and ampicillin 2 days ago. [facility] reports that she is normally awake alert and oriented. On arrival here in the emergency department patient is awake and alert but seems confused and disoriented. She is markedly bradycardic with a heart rate in the low 40s. Blood pressure is actually elevated. Patient is able to answer some questions but really unable to provide any significant history or review of systems. On examination patient is an obese elderly female in mild distress. She is alert but confused and disoriented. There is no cyanosis or diaphoresis. Breath sounds are decreased but equal bilaterally. Heart is irregular. Markedly bradycardic. Abdomen is soft with normal bowel sounds. Labs reviewed. At this point patient is being treated for myxedema coma as well as acute renal failure and liver failure with hepatic encephalopathy. The hospitalist, Dr. Wells, was consulted and accepted admission of the patient.
[2016-08-07] MEDS ORDERED: Albuterol 2.5 MG/3 ML NEBULIZER IH ONE (04:44)
[2016-08-07 04:55] LABS: Thyroid Stimulating Hormone 9.392 mcIU/mL (0.350-4.840)
[2016-08-07 04:56] LABS: Basophils # 0.1 K/mcL (0.0-0.2); Basophils % 0.8 %; Eosinophils # 0.2 K/mcL (0.0-0.6); Eosinophils % 3.1 %; Hematocrit 42.1 % (35.3-44.9); Hemoglobin 13.1 g/dL (11.5-15.4); Immature Granulocytes % 3.4 % (0-4); Lymphocytes # 0.7 K/mcL (0.6-4.6); Lymphocytes % 11.2 %; Mean Corpuscular HGB Conc 31.1 g/dL (31.6-35.5); Mean Corpuscular Hemoglobin 31.5 pg (28.0-33.3); Mean Corpuscular Volume 101.2 fL (83.0-100.0); Monocytes # 0.8 K/mcL (0.0-1.3); Monocytes % 11.9 %; Neutrophils # 4.5 K/mcL (1.6-8.9); Nucleated Red Blood Cells 2.3 /100 WBC (0); Platelet Count 254 K/mcL (140-400); Red Blood Count 4.16 M/mcL (3.82-4.97); Segmented Neutrophils % 69.6 %
[2016-08-07 05:02] LABS: INR 1.4; Prothrombin Time 15.7 Seconds (9.4-12.1)
[2016-08-07 05:28] LABS: Albumin 2.9 g/dL (3.5-5.0); Albumin/Globulin Ratio 0.7 (1.1-2.2); Bilirubin,Direct 2.1 mg/dL (0.0-0.5); Bilirubin,Indirect 1.6 mg/dL (0.0-1.2); Bilirubin,Total 3.7 mg/dL (0.2-1.2); Calcium 8.4 mg/dL (8.6-10.8); Globulin 3.9 g/dL (2.4-3.5); Magnesium 2.8 mg/dL (1.6-2.6); Phosphorous 6.6 mg/dL (2.3-4.7); Total Protein 6.8 g/dL (6.0-8.3)
[2016-08-07 05:28] LABS: Bilirubin,Urine Moderate (Negative); Blood,Urine Negative (Negative); Clarity,Urine Cloudy (Clear); Color,Urine Orange (Yellow); Glucose,Urine (UA) Normal (Normal); Ketones,Urine Trace mg/dL (Negative); Leukocyte Esterase,Urine Small (Negative); Nitrite,Urine Positive (Negative); Protein,Urine 30 mg/dL (Neg-Trace); Specific Gravity,Urine 1.026 (1.010-1.025); Urobilinogen,Urine Normal (Normal)
[2016-08-07 05:29] LABS: Squamous Epithelial Cell,Urine Many per lpf (None-Few)
[2016-08-07] MEDS ORDERED: 0.9 % Sodium Chloride 500 ML IV ONE (05:37)
[2016-08-07 05:38] LABS: Bacteria,Urine Many per hpf (None-Few); Yeast,Urine Many per hpf (None Seen)
[2016-08-07 05:39] LABS: Hyaline Casts,Urine Few per lpf (None-Few)
[2016-08-07] MEDS ORDERED: Lactulose Oral Soln 20 GM/30 ML UDC PO ONE (05:39)
[2016-08-07] MEDS ORDERED: Calcium Gluconate 1,000 MG in D5% in Water 100 ML IVPB ONE ×2 (05:39→14:41)
[2016-08-07] MEDS ORDERED: *HR* Dextrose 50 % in Water (Syg) 50 ML SYRINGE IVP ONE ×2 (05:40→14:41)
[2016-08-07] MEDS ORDERED: Insulin Human Regular 10 UNIT in 0.9 % Sodium Chloride 10 ML IV ONE ×2 (05:40→14:41)
[2016-08-07] MEDS ORDERED: Levothyroxine Sodium 200 MCG VIAL IVP ONE (05:59)
[2016-08-07] MEDS ORDERED: Dexamethasone 4 MG/ML VIAL IVP ONE (06:00)
[2016-08-07] MEDS ORDERED: Piperacillin/Tazobactam 3.375 GM in D5% in Water (Mini-Bag+) 100 ML IVPB ONE (06:02)
[2016-08-07] MEDS ORDERED: VANCOMYCIN IV ONE (06:04)
[2016-08-07] MEDS ORDERED: D5 IV ONE (06:04)
[2016-08-07] MEDS ORDERED: WATER IV ONE (06:04)
--- NOTE | 2016-08-07 09:23 | Pulmonology History & Physical ---
Date of Encounter: 08/07/16 Time of Encounter: 09:00 Assessment and Plan (1) Acute metabolic encephalopathy Current visit: No Status: Acute Patient's current acute metabolic encephalopathy likely multifactorial in basis. Patient comes in in kidney failure with elevated BUN, pneumonia labels elevated, recent skin infection treated with ampicillin, or perhaps due to polypharmacy. Patient is BUN currently 79, up from 40 (report was at discharge on 07/26/16). At admission she was found having elevated ammonia level at 117. Patient has also been having some bradycardia and has a couple episodes of documented hypotension. On repeat exam that afternoon, no level is normal. We will continue to monitor patient labs closely Kayexalate as needed for hyperkalemia Lactulose as needed for elevated ammonia levels We will continue to monitor patient mental status closely (2) Acute on chronic kidney failure Current visit: No Status: Acute Patient has known chronic kidney disease stage IV, she sees Dr. Ramos as an outpatient. During her previous hospitalization she had developed an AURORA, that was improving upon her discharge. But when presenting to the hospital today, she has elevated serum creatinine of 5.57 with estimated GFR of 7, her overall renal function is much worse than when she left the hospital 12 days ago at which point in time her estimated GFR was 28. With her new kidney failure on CKD she also has an elevated BUN at 79. We have consulted nephrology and appreciate the recommendations for continued management/care 500 mL fluid bolus Continue to monitor (3) Hyperkalemia Current visit: Yes Status: Acute Patient potassium 6.0 on admission, no signs of changes seen on EKG. She was given Kayexalate at that time, insulin, calcium gluconate, and fluid. On recheck of patient potassium it was 6.4. Another round of Kayexalate, insulin, calcium gluconate, and 500 mL fluid. Patient hyperkalemia likely result of new onset kidney failure on chronic kidney disease. Continue to monitor closely Nephrology consulted and appreciate continue recommendations Consider additional Kayexalate, insulin, calcium gluconate if continued hyperkalemia (4) Bradycardia Current visit: Yes Status: Acute Patient presents with heart rate as low as the 30s, she is on amiodarone and metoprolol for a chill fibrillation normally. In speaking with the patient's son her heart rate is normally around 50. It has been in the mid to high 40s most of today. We will continue to hold amiodarone and metoprolol Continue to monitor via telemetry (5) Increased ammonia level Current visit: Yes Status: Acute Admission patient ammonia level was 117. She was given lactulose at that time and on recheck her ammonia was 27. This could be contributing to patient's current metabolic encephalopathy. We will continue to monitor (6) Elevated bilirubin Current visit: Yes Status: Acute (7) Chronic wound of extremity Current visit: No Status: Chronic Patient has chronic stasis of the lower extremities leading to chronic pitted edema, and lower extremity wounds. Her feet are cool, purple, there are several chronic wounds, none of which appear infected at this time. We will consult wound care for appropriate continued management of lower extremity wounds (8) Arterial insufficiency of lower extremity Current visit: No Status: Acute As above (9) DVT prophylaxis Current visit: No Status: Acute GI prophylaxis: Pantoprazole DVT prophylaxis heparin Neuro/sedation: Acute metabolic encephalopathy. Given lactulose, Kayexalate, elevated BUN, neuro consult, possibly polypharmacy Cardio: History of CHF, last echo 60% mild diastolic dysfunction, hyperkalemia given fluids, insulin, calcium gluconate Renal: Acute kidney failure on chronic kidneys disease stage IV, given fluids, consult nephrology GI: Prophylaxis as above Respiratory: Maintain adequate oxygen saturation on 4 L, continue moderate to his pulse ox Fluid/electrolytes: Occasional bolus of saline, multiple metabolic derangements including hyperkalemia. Insulin, calcium gluconate, continue to monitor Musculoskeletal: Chronic venous stasis lower extremities Skin: Cool, purple lower extremities. Multiple chronic wounds of lower extremities ID: Recent treatment with ampicillin for cellulitis, blood cultures pending, urine culture pending, unlikely infected but will monitor Endocrine: No consistent this time CODE STATUS full History of Present Illness Chief complaint: Altered mental status, hypotension, bradycardia HPI: Ms. Beach is a 80 year old female with prior medical history of asthma, chronic venous stasis, CHF (EF 60%), CKD stage IV who was recently in the hospital and discharged 07/26/16 after being treated for cellulitis. She was brought to [place] morning of 08/07/16 because she was found to have altered mental status and to be hypotensive at her [facility]. At admission she was noted to be bradycardic with heart rates in the 30s to 40s, have altered mental status, and was somewhat hypotensive. She was also found to have an elevated serum creatinine, decreased GFR, elevated ammonia, bilirubin, phosphorus, and elevated potassium. Her negatively inotropic agents have been discontinued, wound care is being consulted for lower extremity wounds, nephrology has been consulted for acute on chronic kidney disease and assist in control of her metabolic abnormalities. She is getting lactulose, Kayexalate, senna, docusate. Rechecking labs with correction of electrolyte abnormalities. Past Med Surg Social Fam HX - Past Medical History Medical history: asthma, CHF, hyperlipidemia, hypertension, renal disease Psychiatric history: no psych history - Past Surgical History Surgical History: cholecystectomy - Social History Smoking Status: Former smoker Smokeless Tobacco Status: No Alcohol use: none Drug use: none - Family History Mother Family Member Ethnicity: Non- Living Status: Hx Family Cancer: Yes Father Living Status: Medications and Allergies Acetaminophen [Tylenol] 650 mg PO Q6HR PRN 08/07/16 [History] Albuterol Sulfate [Albuterol Inhaler] 2 puff IH Q6HR PRN 08/07/16 [History] Amiodarone [Cordarone] 300 mg PO DAILY 08/07/16 [History] Aspirin 325 mg PO DAILY 08/07/16 [History] Beclomethasone Diprop 80mcg [Qvar 80 mcg] 2 puff IH BID 08/07/16 [History] Famotidine [Pepcid] 20 mg PO DAILY 08/07/16 [History] L.acidoph,Paracasei, B.lactis [Probiotic] 1 cap PO BID 08/07/16 [History] Metolazone [Zaroxolyn] 5 mg PO DAILY PRN 08/07/16 [History] Metoprolol [Lopressor] 50 mg PO BID 08/07/16 [History] Ondansetron Oral Soln [Zofran Oral Soln] 4 mg PO Q12H PRN 08/07/16 [History] Ondansetron [Zofran] 8 mg PO Q12H PRN 08/07/16 [History] OxyCODONE/APAP 5/325 [Percocet 5/325 MG] 2 tab PO Q6HR PRN 08/07/16 [History] Allergies No Known Allergies Allergy (Unverified 02/25/15 15:26) ROS unobtainable: due to mental status Physical Examination Vital Signs: Vital Signs, Last 4 Hours Pulse Resp BP Pulse Ox 08/07/16 07:32 18 135/66 08/07/16 07:30 47 16 140/80 100 Constitutional: Alert, A&Ox1, somewhat agitated, no acute distress EENT: Sclera nonicteric, noninjected, oropharynx moist, neck supple Respiratory: Respirations nonlabored, clear to auscultation bilaterally, no wheezes/rhonchi/rales appreciated Cardiovascular: Bradycardic, no murmurs/rubs/gallops appreciated Gastrointestinal: Normoactive bowel sounds, soft, nontender, nondistended, obese abdomen, no guarding or rebound Integumentary: Chronic venous stasis, chronic skin coloration changes in lower extremities, no rashes, no pallor appreciated, Extremities: Bilateral lower extremities appear purple, 2+ pitted edema bilaterally in lower extremities, no clubbing, pedal pulses difficult to locate , but present, multiple chronic skin wounds and lower extremitie Musculoskeletal: No deformities Neurologic: Pupils equal and round, slightly agitated, uncooperative, Results - Laboratory Findings CBC and BMP: 08/07/16 04:46 08/07/16 14:04 PT/INR, D-dimer PT 15.7 Seconds (9.4-12.1) H 08/07/16 04:46 Abnormal lab findings: Abnormal lab results MCV 101.2 fL (83.0-100.0) H D 08/07/16 04:46 MCHC 31.1 g/dL (31.6-35.5) L 08/07/16 04:46 RDW 23.0 % (11.5-14.5) H 08/07/16 04:46 Nucleated RBCs/100 WBC 2.3 /100 WBC (0) H 08/07/16 04:46 PT 15.7 Seconds (9.4-12.1) H 08/07/16 04:46 Potassium 6.0 mEq/L (3.5-4.5) H 08/07/16 05:07 Carbon Dioxide 11 mEq/L (19-29) L 08/07/16 05:07 BUN 74 mg/dL (7-20) H 08/07/16 05:07 Creatinine 5.33 mg/dL (0.57-1.11) H 08/07/16 05:07 Est GFR ( Amer) 9 (> 60) L 08/07/16 05:07 Est GFR (Non-Af Amer) 8 (> 60) L 08/07/16 05:07 POC Glucose 92 (58-89) H 08/07/16 08:23 Calculated Osmolality 303 (280-300) H 08/07/16 05:07 Calcium 8.4 mg/dL (8.6-10.8) L 08/07/16 05:07 Phosphorus 6.6 mg/dL (2.3-4.7) H 08/07/16 05:07 Magnesium 2.8 mg/dL (1.6-2.6) H 08/07/16 05:07 Total Bilirubin 3.7 mg/dL (0.2-1.2) H 08/07/16 05:07 Direct Bilirubin 2.1 mg/dL (0.0-0.5) H 08/07/16 05:07 Indirect Bilirubin 1.6 mg/dL (0.0-1.2) H 08/07/16 05:07 AST 52 Units/L (5-34) H 08/07/16 05:07 Alkaline Phosphatase 145 Units/L (38-126) H 08/07/16 05:07 Ammonia 117 mcmol/L (18-72) H 08/07/16 05:07 Albumin 2.9 g/dL (3.5-5.0) L 08/07/16 05:07 Globulin 3.9 g/dL (2.4-3.5) H 08/07/16 05:07 Albumin/Globulin Ratio 0.7 (1.1-2.2) L 08/07/16 05:07 TSH 9.392 mcIU/mL (0.350-4.840) H 08/07/16 05:07 Urine Color [place] (Yellow) A 08/07/16 05:15 Urine Clarity Cloudy (Clear) A 08/07/16 05:15 Ur Specific [place] 1.026 (1.010-1.025) H 08/07/16 05:15 Urine Protein 30 mg/dL (Neg-Trace) H 08/07/16 05:15 Urine Ketones Trace mg/dL (Negative) H 08/07/16 05:15 Urine Nitrite Positive (Negative) A 08/07/16 05:15 Urine Bilirubin Moderate (Negative) H 08/07/16 05:15 Ur Leukocyte Esterase Small (Negative) H 08/07/16 05:15 Urine Microscopic RBC 3-5 per hpf (0-3) H 08/07/16 05:15 Urine Microscopic WBC 5-15 per hpf (0-3) H 08/07/16 05:15 Ur Squamous Epith Cells Many per lpf (None-Few) H 08/07/16 05:15 Urine Bacteria Many per hpf (None-Few) H 08/07/16 05:15 Urine Yeast Many per hpf (None Seen) H 08/07/16 05:15 Ur Culture Indicated? YES (NO) A 08/07/16 05:15
[2016-08-07] MEDS ORDERED: Naloxone 0.4 MG/ML INJ IVP PRN (09:24)
[2016-08-07] MEDS ORDERED: Ondansetron 4 MG/2 ML VIAL IVP PRN (09:42)
[2016-08-07] MEDS ORDERED: Acetaminophen 325 MG TABLET PO PRN (09:42)
[2016-08-07] MEDS ORDERED: Pantoprazole 40 MG VIAL IVPB SCH (09:45)
[2016-08-07] MEDS ORDERED: Ipratropium/Albuterol Neb 3 ML IH PRN (09:52)
[2016-08-07 10:55] LABS: ABG Base Excess -9.6 mEq/L (-2.0 to 3.0); ABG HCO3 15.7 mEQ/L (21-27); ABG Oxygen Saturation 99 % (95-98); ABG PCO2 32 mmHg (35-45); ABG PO2 132 mmHg (85-104); ABG TCO2 16.7 mEq/L (20-26)
[2016-08-07 10:56] LABS: Blood Gas FiO2 36 %
[2016-08-07] MEDS: *HR* Heparin 5,000 UNIT/ML VIAL SQ SCH ×2 (14:19→20:44)
[2016-08-07] MEDS: Nystatin POWDER 30 GM BOTTLE TP SCH ×3 (14:19→20:45)
[2016-08-07 14:26] LABS: Albumin 2.8 g/dL (3.5-5.0); Albumin/Globulin Ratio 0.7 (1.1-2.2); Bilirubin,Total 3.6 mg/dL (0.2-1.2); Calcium 8.4 mg/dL (8.6-10.8); Potassium 6.4 mEq/L (3.5-4.5); Total Protein 6.8 g/dL (6.0-8.3)
[2016-08-07] MEDS ORDERED: 0.9 % Sodium Chloride 500 ML IVC ONE (14:47)
--- NOTE | 2016-08-07 15:06 | Event Note ---
Date of Encounter: 08/07/16 Time of Encounter: 14:58 Patient examined, chart and all data reviewed as well as imaging studies. This elderly female was admitted from an extended care facility to [facility] intensive care unit given altered mental status bradycardia. This patient was recently hospitalized and reportedly received treatment for lower extremity cellulitis which per the discharging physicians mandated placement of a power glide catheter and ministration of IV antibiotics. At the time of her repeat presentation to the hospital, she is arousable readily falls asleep is obviously confused. Current blood pressure is acceptable. Examination is notable for an obese elderly female who is in no distress. Chest exam revealed reduced breath sounds at the bases, irregular heart rate loud P2, central obesity but nontender abdomen cool lower extremities with cyanosis and chronic venous stasis changes. Laboratory data notable for severe renal dysfunction and hyperkalemia transaminitis mild leukocytosis and anemia. Previously performed evaluations have included echocardiography which was notable for preserved LV systolic function but significantly impaired RV function and elevation of the right circular systolic pressure. These echocardiographic findings all bespeak of pulmonary hypertension and right heart dysfunction Karie in part due to diastolic dysfunction but more likely related to hypoxia and ventilatory dysfunction. Aside from directing treatment for hyperkalemia, additional volume administration will be provided to enhance renal function. Milley, the patient may require dialytic support if aggressive measures are desired per further discussion with the power of contracts attorney. Additional evaluation for extremity ischemia will be performed which will include noninvasive arterial and venous studies. Overall, this patient has a poor prognosis in light of her poor performance status, comorbidities and age.
[2016-08-07] MEDS: Silvasorb 44.4 ML TUBE TP SCH ×2 (15:46→16:14)
--- NOTE | 2016-08-07 17:45 | Nephrology Consult Note ---
Date of Encounter: 08/07/16 Time of Encounter: 17:41 Assessment and Plan (1) Acute kidney injury superimposed on chronic kidney disease Current Visit: No Status: Acute (2) Acute metabolic encephalopathy Current Visit: No Status: Acute (3) Bradycardia Current Visit: Yes Status: Acute (4) Hyperkalemia Current Visit: Yes Status: Acute (5) Arterial insufficiency of lower extremity Current Visit: No Status: Acute (6) Morbidly obese Current Visit: No Status: Chronic Qualifiers: Obesity type: unspecified obesity type Qualified Code(s): E66.01 - Morbid ( severe) obesity due to excess calories History of Present Illness - Reason for Consult Consult date: 08/07/16 Acute Kidney Injury, Chronic Kidney Disease - Chief Complaint AURORA - History of Present Illness Ms Beach is a 80 yo woman with a history of CKD and recent admission and discharge for a foot infection. She presents with altered mental status. Past Med Surg Social Fam HX - Past Medical History Medical history: asthma, CHF, hyperlipidemia, hypertension, renal disease Psychiatric history: no psych history - Past Surgical History Surgical History: cholecystectomy - Social History Smoking Status: Former smoker Smokeless Tobacco Status: No Alcohol use: none Drug use: none - Family History Mother Family Member Ethnicity: Non- Living Status: Hx Family Cancer: Yes Father Living Status: Cause of : cirrhosis Medications and Allergies Acetaminophen [Tylenol] 650 mg PO Q6HR PRN 08/07/16 [History] Albuterol Sulfate [Albuterol Inhaler] 2 puff IH Q6HR PRN 08/07/16 [History] Amiodarone [Cordarone] 300 mg PO DAILY 08/07/16 [History] Aspirin 325 mg PO DAILY 08/07/16 [History] Beclomethasone Diprop 80mcg [Qvar 80 mcg] 2 puff IH BID 08/07/16 [History] Famotidine [Pepcid] 20 mg PO DAILY 08/07/16 [History] L.acidoph,Paracasei, B.lactis [Probiotic] 1 cap PO BID 08/07/16 [History] Metolazone [Zaroxolyn] 5 mg PO DAILY PRN 08/07/16 [History] Metoprolol [Lopressor] 50 mg PO BID 08/07/16 [History] Ondansetron Oral Soln [Zofran Oral Soln] 4 mg PO Q12H PRN 08/07/16 [History] Ondansetron [Zofran] 8 mg PO Q12H PRN 08/07/16 [History] OxyCODONE/APAP 5/325 [Percocet 5/325 MG] 2 tab PO Q6HR PRN 08/07/16 [History] Allergies No Known Allergies Allergy (Unverified 02/25/15 15:26) Exam - Vital Signs Vital signs: Initial Vital Signs Temp Pulse Resp BP Pulse Ox 96.0 F L 42 16 150/141 90 L 08/07/16 03:42 08/07/16 03:42 08/07/16 03:42 08/07/16 03:42 08/07/16 03:42 Vital Signs - Last 8 Hours Temp Pulse Resp BP Pulse Ox 08/07/16 16:00 53 12 121/68 99 08/07/16 15:27 97.2 F L 08/07/16 15:00 53 14 123/86 100 08/07/16 14:00 48 12 123/76 100 08/07/16 13:00 48 12 112/61 94 L 08/07/16 12:00 49 14 128/73 94 L 08/07/16 11:28 97.1 F L 08/07/16 11:00 43 12 112/81 90 L 08/07/16 10:00 46 20 117/41 90 L Intake and Output 08/07/16 08/07/16 08/07/16 07:59 15:59 23:59 Intake Total 200 / 200 Output Total 125 / 125 Balance 75 / 75 Intake: IV Fluids 100 / 100 Zosyn 3.375 GM In 100 / 100 Dextrose 5% (Minibag+) 100 ML 100 ML @ 25 mls/hr IVPB ONCE ONE Rx#: [id number] Oral 100 / 100 Output: Catheter 125 / 125 Other: Weight 116.12 kg Blood Glucose* 92 Patient Weight 08/07/16 23:59 Weight 116.12 kg - General Appearance General appearance: well-developed, well-nourished, obese, chronically ill EENT: ATNC Neck: supple Respiratory: clear (anteriorly) Cardiology: edema Gastrointestinal: normoactive bowel sounds, no tenderness Integumentary: warm and dry Neurologic: confused, disoriented Additional Comments: hard of hearing Musculoskeletal: no cyanosis Additional Comments: calm Results - Lab Results 08/07/16 04:46 08/07/16 14:04 Most recent lab results ABG pH 7.30 pH Units (7.32-7.45) L 08/07/16 10:45 ABG pCO2 32 mmHg (35-45) L 08/07/16 10:45 ABG pO2 132 mmHg (85-104) H 08/07/16 10:45 ABG HCO3 15.7 mEQ/L (21-27) L 08/07/16 10:45 ABG O2 Saturation 99 % (95-98) H 08/07/16 10:45 Calcium 8.4 mg/dL (8.6-10.8) L 08/07/16 14:04 Phosphorus 7.0 mg/dL (2.3-4.7) H 08/07/16 14:04 Magnesium 2.8 mg/dL (1.6-2.6) H 08/07/16 05:07 Consult Discharge Plan - Plan Referrals: Lauren Pollack MD [Primary Care Provider] -
[2016-08-07] MEDS ORDERED: 0.9 % Sodium Chloride 1,000 ML IVC ONE (17:53)
[2016-08-07] MEDS ORDERED: 0.9 % Sodium Chloride 1,000 ML ONE (17:54)
[2016-08-07 19:20] LABS: Calcium 8.1 mg/dL (8.6-10.8); Magnesium 2.7 mg/dL (1.6-2.6); Phosphorous 6.5 mg/dL (2.3-4.7)
[2016-08-07 19:26] LABS: Potassium 5.1 mEq/L (3.5-4.5)
[2016-08-07 19:42] LABS: Ionized Calcium 1.06 mmol/L (1.15-1.35)
[2016-08-07] MEDS ORDERED: Docusate Oral Soln 100 MG/10 ML UDC GTUBE SCH (21:00)
[2016-08-07] MEDS ORDERED: Sennosides 8.6 MG TABLET PO SCH (21:00)
[2016-08-07 21:07] LABS: Triiodothyronine (T3) Total 0.38 ng/mL (0.58-1.59)
[2016-08-07] MEDS ORDERED: *HR* LORazepam 2 MG/ML VIAL IVP ONE (22:27)
[2016-08-07] MEDS: 0.9 % Sodium Chloride 1,000 ML IVC SCH (22:27)
[2016-08-08] MEDS ORDERED: *HR* Dextrose 50 % in Water (Syg) 50 ML SYRINGE ONE ×2 (03:10→03:22)
[2016-08-08] MEDS ORDERED: *HR* Dextrose 50 % in Water (Syg) 50 ML SYRINGE IVP ONE (03:52)
[2016-08-08] MEDS ORDERED: *HR* Dextrose 50 % in Water (Syg) 50 ML SYRINGE IVP PRN (04:18)
[2016-08-08] MEDS ORDERED: Dextrose Gel 15 GM PO PRN ×2 (04:18)
[2016-08-08] MEDS ORDERED: D5% in Water 1,000 ML IV PRN (04:18)
[2016-08-08] MEDS ORDERED: Lacri-Lube 3.5 GM TUBE BOTH EYES PRN (04:24)
[2016-08-08] MEDS: Norepinephrine 4 MG in D5% in Water 250 ML IVC SCH ×2 (04:24→08:08)
[2016-08-08 04:56] LABS: ABG Base Excess -17.5 mEq/L (-2.0 to 3.0); ABG HCO3 9.5 mEQ/L (21-27); ABG Oxygen Saturation 99 % (95-98); ABG PCO2 26 mmHg (35-45); ABG PO2 161 mmHg (85-104); ABG TCO2 10.3 mEq/L (20-26)
[2016-08-08 04:57] LABS: ABG PH 7.17 pH Units (7.32-7.45); Blood Gas FiO2 100 %
[2016-08-08 05:05] LABS: Red Cell Distribution Width 22.6 % (11.5-14.5)
[2016-08-08 05:07] LABS: Hematocrit 39.6 % (35.3-44.9); Hemoglobin 11.9 g/dL (11.5-15.4); Mean Corpuscular HGB Conc 30.1 g/dL (31.6-35.5); Mean Corpuscular Hemoglobin 31.5 pg (28.0-33.3); Mean Corpuscular Volume 104.8 fL (83.0-100.0); Mean Platelet Volume 9.5 fL (9.4-12.4); Platelet Count 167 K/mcL (140-400); Red Blood Count 3.78 M/mcL (3.82-4.97)
[2016-08-08 05:16] LABS: INR 1.8; Prothrombin Time 19.4 Seconds (9.4-12.1)
[2016-08-08 05:21] LABS: Albumin/Globulin Ratio 0.7 (1.1-2.2); Bilirubin,Direct 2.2 mg/dL (0.0-0.5); Bilirubin,Total 3.2 mg/dL (0.2-1.2); Calcium 7.6 mg/dL (8.6-10.8); Globulin 2.7 g/dL (2.4-3.5); Magnesium 2.1 mg/dL (1.6-2.6); Phosphorous 6.3 mg/dL (2.3-4.7); Potassium 4.8 mEq/L (3.5-4.5)
[2016-08-08] MEDS: *HR* Heparin 5,000 UNIT/ML VIAL SQ SCH (05:21)
[2016-08-08 05:22] LABS: Total Protein 4.7 g/dL (6.0-8.3)
[2016-08-08] MEDS: 0.9 % Sodium Chloride 1,000 ML IVC SCH (05:30)
[2016-08-08 05:43] LABS: Hemoglobin A1C 4.5 %
[2016-08-08 05:44] LABS: Vancomycin,Random < 0.4 mcg/mL
[2016-08-08 05:47] LABS: Anisocytosis 2+ (Not Present); Burr Cells 1+ (Not Present); Lymphocytes # 0.5 K/mcL (0.6-4.6); Monocytes # 0.2 K/mcL (0.0-1.3); Neutrophils # 0.7 K/mcL (1.6-8.9); Platelet Estimate Normal (Normal); Poikilocytosis 2+ (Not Present); Polychromasia 2+ (Not Present); Reactive Lymphocytes Present (Not Present); Toxic Vacuolation Present (Not Present)
[2016-08-08] MEDS ORDERED: Famotidine 20 MG/2 ML VIAL IVP SCH (06:00)
[2016-08-08] MEDS ORDERED: Piperacillin/Tazobactam 3.375 GM in D5% in Water (Mini-Bag+) 100 ML IVPB SCH (06:00)
[2016-08-08] MEDS ORDERED: D10% in Water 500 ML IVC SCH (06:00)
[2016-08-08] MEDS ORDERED: Vancomycin 1,500 MG in D5% in Water 250 ML IVPB SCH (06:00)
[2016-08-08] MEDS ORDERED: Vancomycin 1,750 MG in D5% in Water 250 ML IVPB SCH (06:00)
--- NOTE | 2016-08-08 06:11 | Event Note ---
Date of Encounter: 08/08/16 Time of Encounter: 03:00 I was called by RN to evaluate the patient for altered mental status. On arrival the patient is unarousable, nonresponsive to sternal rub. On exam she is nonresponsive what agonal breathing, heart is bradycardic S1-S2 with a rate of 40. Heart rate drops as low as 37. Oxygen saturation in the high 80s. Lungs are diminished bilaterally with coarse breath sounds and rales. Abdomen is obese soft nontender nondistended. Extremities with pitting edema and skin discoloration and skin wounds on the dorsum of both feet. Assessment and plan: #1 acute hypoxic respiratory failure due to profound metabolic encephalopathy in the context of hypoglycemia and possible severe sepsis The patient appears to be agonal and in a very dire condition only minutes away from cardiac and respiratory arrest and therefore she needed emergent airway management and mechanical ventilation. She was hypoglycemic prior to my arrival and she received 1 ampule of 50, dextrose 50. I will order infusion of a second ampule of 50 mL. Blood glucose increased to 1:30 however the patient did not arouse and her breathing had slowed down and she appears to be impending respiratory arrest and therefore she was intubated and placed on mechanical ventilation. Initial vent settings assist control with tidal volume of 550, respiratory rate of 14 and FiO2 100% and titrate down to maintain oxygen saturation above 92% and PEEP of 5. A chest x-ray was obtained to verify the placement of ET tube. ABG then was obtained and revealed metabolic acidosis with respiratory alkalosis. The metabolic acidosis likely secondary to advanced renal failure I will order infusion of 2 ampules of sodium bicarbonate and recheck ABG in 2 hours. For the respiratory alkalosis will decrease the tidal volume to 500 mL. #2 possible severe sepsis due to pneumonia and infected lower extremity skin ulcers We will obtain blood cultures and will treat the patient with IV Zosyn and vancomycin. #3 severe acute kidney failure. Follow-up with nephrology. At this point the patient is anuric. We will start IV fluids #4 sinus bradycardia possibly in the context of metoprolol and amiodarone use We will start treatment with norepinephrine to maintain heart rate between 60 and 90 and mean arterial pressure above 65. The patient is highly unstable and there is high probability of emergent and significant clinical decompensation with potential impairment of organ function including cardiovascular system and respiratory system. I have performed 45 minutes of critical care time which involved decision making of high complexity to assess, manipulate, and support vital organ system, in order to prevent further life threatening deterioration of the patient's condition. The time involved in the performance of any procedures was not counted toward critical care time and will be billed separately. Critical care time was spent evaluating the patient multiple times, reviewing imaging studies and laboratory data, ordering medications and ventilator management settings and reevaluating for clinical response to the above interventions and making adjustments to ordered medications.
--- NOTE | 2016-08-08 06:16 | Event Note ---
Date of Encounter: 08/08/16 Time of Encounter: 04:00 Procedure note Endotracheal Intubation Indication: Acute hypoxic respiratory failure Attending: Antonio Wells MD A time-out was completed verifying correct patient, procedure, site, positioning , and special equipment if applicable. The patient was placed in a flat position. Sedation was not administered because the patient was unresponsive secondary to profound encephalopathy. The patient was easily ventilated using an ambu bag and mask. The laryngoscope MAC 4 BLADE was used and inserted into the oropharynx and vomitus was suctioned from the oropharynx, at which time there was a Grade 1 view of the vocal cords. A 7.5-norwegian endotracheal tube was inserted and visualized going through the vocal cords. The stylette was removed. Colorimetric change was visualized on the CO2 meter. Breath sounds were heard in both lung myers equally. The endotracheal tube was placed at 23 cm, measured at the teeth and secured in place. The endotracheal tube was connected to the ventilator. A chest x-ray was ordered to assess for pneumothorax and verify endotrachealtube placement. I have personally reviewed the chest x-ray and found the endotracheal tube to be in adequate position. Estimated Blood Loss: 0ml The patient tolerated the procedure well and there were no complications.
--- NOTE | 2016-08-08 06:37 | Pulmonology Progress Note ---
Date of Encounter: 08/08/16 Time of Encounter: 06:15 Assessment and Plan (1) Acute metabolic encephalopathy Current Visit: No Status: Acute Patient's current acute metabolic encephalopathy likely multifactorial in basis. Patient comes in in kidney failure with elevated BUN, pneumonia labels elevated, recent skin infection treated with ampicillin, or perhaps due to polypharmacy. Patient is BUN currently 79, up from 40 (report was at discharge on 07/26/16). At admission she was found having elevated ammonia level at 117. Patient has also been having some bradycardia and has a couple episodes of documented hypotension. On repeat exam that afternoon, no level is normal. We will continue to monitor patient labs closely Kayexalate as needed for hyperkalemia Lactulose as needed for elevated ammonia levels We will continue to monitor patient mental status closely (2) Acute on chronic kidney failure Current Visit: No Status: Acute Patient has known chronic kidney disease stage IV, she sees Dr. Ramos as an outpatient. During her previous hospitalization she had developed an AURORA, that was improving upon her discharge. But when presenting to the hospital today, she has elevated serum creatinine of 5.57 with estimated GFR of 7, her overall renal function is much worse than when she left the hospital 12 days ago at which point in time her estimated GFR was 28. With her new kidney failure on CKD she also has an elevated BUN at 79. We have consulted nephrology and appreciate the recommendations for continued management/care 500 mL fluid bolus Continue to monitor (3) Hyperkalemia Current Visit: Yes Status: Acute Patient potassium 6.0 on admission, no signs of changes seen on EKG. She was given Kayexalate at that time, insulin, calcium gluconate, and fluid. On recheck of patient potassium it was 6.4. Another round of Kayexalate, insulin, calcium gluconate, and 500 mL fluid. Patient hyperkalemia likely result of new onset kidney failure on chronic kidney disease. Continue to monitor closely Nephrology consulted and appreciate continue recommendations Consider additional Kayexalate, insulin, calcium gluconate if continued hyperkalemia (4) Bradycardia Current Visit: Yes Status: Acute Patient presents with heart rate as low as the 30s, she is on amiodarone and metoprolol for a chill fibrillation normally. In speaking with the patient's son her heart rate is normally around 50. It has been in the mid to high 40s most of today. We will continue to hold amiodarone and metoprolol Continue to monitor via telemetry (5) Increased ammonia level Current Visit: Yes Status: Acute Admission patient ammonia level was 117. She was given lactulose at that time and on recheck her ammonia was 27. This could be contributing to patient's current metabolic encephalopathy. We will continue to monitor (6) Elevated bilirubin Current Visit: Yes Status: Acute (7) Chronic wound of extremity Current Visit: No Status: Chronic Patient has chronic stasis of the lower extremities leading to chronic pitted edema, and lower extremity wounds. Her feet are cool, purple, there are several chronic wounds, none of which appear infected at this time. We will consult wound care for appropriate continued management of lower extremity wounds (8) Arterial insufficiency of lower extremity Current Visit: No Status: Acute As above (9) DVT prophylaxis Current Visit: No Status: Acute GI prophylaxis: Pantoprazole DVT prophylaxis heparin Neuro/sedation: Acute metabolic encephalopathy. Given lactulose, Kayexalate, elevated BUN, neuro consult, possibly polypharmacy Cardio: History of CHF, last echo 60% mild diastolic dysfunction, hyperkalemia given fluids, insulin, calcium gluconate Renal: Acute kidney failure on chronic kidneys disease stage IV, given fluids, consult nephrology GI: Prophylaxis as above Respiratory: Maintain adequate oxygen saturation on 4 L, continue moderate to his pulse ox Fluid/electrolytes: Occasional bolus of saline, multiple metabolic derangements including hyperkalemia. Insulin, calcium gluconate, continue to monitor Musculoskeletal: Chronic venous stasis lower extremities Skin: Cool, purple lower extremities. Multiple chronic wounds of lower extremities ID: Recent treatment with ampicillin for cellulitis, blood cultures pending, urine culture pending, unlikely infected but will monitor Endocrine: No consistent this time CODE STATUS full Subjective Principal diagnosis: Renal failure, Acute metabolic encephalopathy Interval history: When seen this morning patient is intubated and mechanically ventilated. She had hypotension and reports of respiratory distress (possible agonal breathing) last night resulting in intubation as well as a central line placed for administration of norepinephrine. Objective PUL Vital signs: Last Vital Signs Temp 98.3 F 08/08/16 04:00 Pulse 51 08/08/16 05:00 Resp 23 08/08/16 06:17 BP 105/72 08/08/16 06:17 Pulse Ox 94 L 08/08/16 06:17 Ventilator Settings Ventilator Settings: Ventilator Settings, Last 8 Hours Ventilator Mode VC+ Ventilator Mode VC+ Ventilator Mode VC+ Ventilator Mode VC+ Ventilator Mode VC+ Ventilator Mode VC+ Ventilator Mode VC+ Ventilator Tidal Volume 500 Setting Ventilator Tidal Volume 550 Setting Ventilator Tidal Volume 550 Setting Ventilator Tidal Volume 550 Setting Ventilator Tidal Volume 550 Setting Ventilator Tidal Volume 550 Setting Ventilator Tidal Volume 550 Setting Ventilator Respiratory Rate 14 Setting Ventilator Respiratory Rate 14 Setting Ventilator Respiratory Rate 14 Setting Ventilator Respiratory Rate 14 Setting Ventilator Respiratory Rate 14 Setting Ventilator Respiratory Rate 14 Setting Ventilator Respiratory Rate 14 Setting Actual Respiratory Rate 25 Actual Respiratory Rate 24 Actual Respiratory Rate 24 Actual Respiratory Rate 22 Actual Respiratory Rate 22 Actual Respiratory Rate 22 Positive End Expiratory 5 Pressure Positive End Expiratory 5 Pressure Positive End Expiratory 5 Pressure Positive End Expiratory 5 Pressure Positive End Expiratory 5 Pressure Positive End Expiratory 5 Pressure Positive End Expiratory 5 Pressure Peak Inspiratory Airway 18 Pressure Peak Inspiratory Airway 17 Pressure Peak Inspiratory Airway 17 Pressure Peak Inspiratory Airway 21 Pressure Peak Inspiratory Airway 20 Pressure Peak Inspiratory Airway 12 Pressure Results - Laboratory Findings CBC and BMP: 08/08/16 04:40 08/08/16 04:40 ABG ABG pH 7.17 pH Units (7.32-7.45) L* 08/08/16 04:45 ABG pCO2 26 mmHg (35-45) L 08/08/16 04:45 ABG pO2 161 mmHg (85-104) H 08/08/16 04:45 ABG O2 Saturation 99 % (95-98) H 08/08/16 04:45 PT/INR, D-dimer PT 19.4 Seconds (9.4-12.1) H 08/08/16 04:40 Abnormal lab findings: Abnormal lab results WBC 1.5 K/mcL (4.3-11.1) L D 08/08/16 04:40 RBC 3.78 M/mcL (3.82-4.97) L 08/08/16 04:40 MCV 104.8 fL (83.0-100.0) H 08/08/16 04:40 MCHC 30.1 g/dL (31.6-35.5) L 08/08/16 04:40 RDW 22.6 % (11.5-14.5) H 08/08/16 04:40 Band Neutrophils % 26.0 % (0-4) H 08/08/16 04:40 Metamyelocytes % 6.0 % (0) H 08/08/16 04:40 Neutrophils # 0.7 K/mcL (1.6-8.9) L 08/08/16 04:40 Lymphocytes # 0.5 K/mcL (0.6-4.6) L 08/08/16 04:40 Nucleated RBCs/100 WBC 49.0 /100 WBC (0) H 08/08/16 04:40 Reactive Lymphocytes Present (Not Present) A 08/08/16 04:40 Toxic Vacuolation Present (Not Present) A 08/08/16 04:40 Polychromasia 2+ (Not Present) A 08/08/16 04:40 Poikilocytosis 2+ (Not Present) A 08/08/16 04:40 Anisocytosis 2+ (Not Present) A 08/08/16 04:40 [place] Cells 1+ (Not Present) A 08/08/16 04:40 PT 19.4 Seconds (9.4-12.1) H 08/08/16 04:40 ABG pH 7.17 pH Units (7.32-7.45) L* 08/08/16 04:45 ABG pCO2 26 mmHg (35-45) L 08/08/16 04:45 ABG pO2 161 mmHg (85-104) H 08/08/16 04:45 ABG HCO3 9.5 mEQ/L (21-27) L 08/08/16 04:45 ABG Total CO2 10.3 mEq/L (20-26) L 08/08/16 04:45 ABG O2 Saturation 99 % (95-98) H 08/08/16 04:45 ABG Base Excess -17.5 mEq/L (-2.0 to 3.0) L 08/08/16 04:45 Potassium 4.8 mEq/L (3.5-4.5) H 08/08/16 04:40 Chloride 112 mEq/L (98-109) H 08/08/16 04:40 Carbon Dioxide 11 mEq/L (19-29) L 08/08/16 04:40 BUN 80 mg/dL (7-20) H 08/08/16 04:40 Creatinine 5.85 mg/dL (0.57-1.11) H 08/08/16 04:40 Est GFR ( Amer) 8 (> 60) L 08/08/16 04:40 Est GFR (Non-Af Amer) 7 (> 60) L 08/08/16 04:40 Glucose 56 mg/dL (70-99) L 08/08/16 04:40 Calculated Osmolality 312 (280-300) H 08/08/16 04:40 Calcium 7.6 mg/dL (8.6-10.8) L 08/08/16 04:40 Ionized Calcium 1.06 mmol/L (1.15-1.35) L 08/07/16 18:37 Phosphorus 6.3 mg/dL (2.3-4.7) H 08/08/16 04:40 Total Bilirubin 3.2 mg/dL (0.2-1.2) H 08/08/16 04:40 Direct Bilirubin 2.2 mg/dL (0.0-0.5) H 08/08/16 04:40 Serum Total Protein 4.7 g/dL (6.0-8.3) L D 08/08/16 04:40 Albumin 2.0 g/dL (3.5-5.0) L D 08/08/16 04:40 Albumin/Globulin Ratio 0.7 (1.1-2.2) L 08/08/16 04:40 TSH 9.392 mcIU/mL (0.350-4.840) H 08/07/16 05:07 Total T3 0.38 ng/mL (0.58-1.59) L 08/07/16 18:37 Urine Color Alcorn (Yellow) A 08/07/16 05:15 Urine Clarity Cloudy (Clear) A 08/07/16 05:15 Ur Specific [place] 1.026 (1.010-1.025) H 08/07/16 05:15 Urine Protein 30 mg/dL (Neg-Trace) H 08/07/16 05:15 Urine Ketones Trace mg/dL (Negative) H 08/07/16 05:15 Urine Nitrite Positive (Negative) A 08/07/16 05:15 Urine Bilirubin Moderate (Negative) H 08/07/16 05:15 Ur Leukocyte Esterase Small (Negative) H 08/07/16 05:15 Urine Microscopic RBC 3-5 per hpf (0-3) H 08/07/16 05:15 Urine Microscopic WBC 5-15 per hpf (0-3) H 08/07/16 05:15 Ur Squamous Epith Cells Many per lpf (None-Few) H 08/07/16 05:15 Urine Bacteria Many per hpf (None-Few) H 08/07/16 05:15 Urine Yeast Many per hpf (None Seen) H 08/07/16 05:15 Ur Culture Indicated? YES (NO) A 08/07/16 05:15 - Clinical Findings Intake & Output: Intake & Output 08/07/16 08/07/16 08/08/16 15:59 23:59 07:59 Intake Total 200 / 200 1000 / 1000 57 / 57 Output Total 125 / 125 100 / 100 25 / 25 Balance 75 / 75 900 / 900 32 / 32 Weight 116.12 kg Consult Discharge Plan - Plan Referrals: Lauren Pollack MD [Primary Care Provider] -
[2016-08-08] MEDS ORDERED: Vancomycin 2,000 MG in D5% in Water 500 ML IVPB ONE (07:00)
[2016-08-08] MEDS ORDERED: Vasopressin 40 UNIT in D5% in Water 100 ML IV SCH (07:15)
[2016-08-08 07:40] VITALS: BP 113/67
[2016-08-08] MEDS ORDERED: Lacri-Lube 3.5 GM TUBE BOTH EYES SCH (08:00)
[2016-08-08] MEDS ORDERED: Hydrocortisone Sodium Succ 100 MG/2 ML VIAL IVP SCH (08:00)
--- NOTE | 2016-08-08 08:08 | Event Note ---
Date of Encounter: 08/08/16 Time of Encounter: 03:30 Central Venous Catheter Placement procedure note Date: 08/08/2016 Time: 3:30 Indication: Intravenous access for pressor support Attending: Antonio Wells The patient was hypotensive and bradycardic, she was emergently intubated and required central venous access for IV pressors. Consent was implied due to the emergent nature of this procedure. A time-out was completed verifying correct patient, procedure, site, positioning , and special equipment. The patient was placed in a dependent position appropriate for central line placement based on the vein to be cannulated. The patients right neck was prepped and draped in sterile fashion. Maximum barrier protection was achieved and maintained throughout the procedure. 1% Lidocaine was used to anesthetize the surrounding skin area. The internal jugular vein was identified by use of the ultrasound machine and was easily cannulated under ultrasound guidance. A guidewire was introduced through the needle and the needle was removed. After appropriate dilation of the site, a triple lumen catheter was introduced into the the internal jugular using the Seldinger technique. The catheter was threaded smoothly over the guide wire and appropriate blood return was obtained. Each lumen of the catheter was evacuated of air and flushed with sterile saline. The catheter was then sutured in place to the skin and a sterile dressing applied. A chest x-ray was obtained and personally reviewed demonstrating the tip of the central line terminating and the SVC. Estimated Blood Loss: 5 mL The patient tolerated the procedure well and there were no complications.
[2016-08-08] MEDS ORDERED: Aminoglycoside Consult 1 EACH MC ONE (08:37)
[2016-08-08] MEDS ORDERED: Aspirin 325 MG TABLET PO SCH (09:00)
[2016-08-08] MEDS ORDERED: Chlorhexidine Rinse 15 ML MOUTHWASH MM SCH (09:00)
--- NOTE | 2016-08-08 09:19 | Event Note ---
<George Mckinney - Last Filed: 08/08/16 08:49> Date of Encounter: 08/08/16 Time of Encounter: 08:10 Mrs. Beach was found this morning at 0812 to have a heart rate in the low 30s. At this time she pads were placed and 1 mg atropine given. Her pulse could not be palpated at that time and ACLS was started. High-quality chest compressions commenced, manual ventilation began as she already had an endotracheal tube in place. She received 1 mg epinephrine injections at 3 minute intervals, beginning shortly after began. She received a total of 3 ampules bicarbonate and 1 g calcium chloride. During the course of the code she was seen to have a large amount of fresh blood suctioned from her ET tube. The first code commenced for 16 minutes stopping every 2 minutes for pulse and rhythm checks, at 60 minutes she was found to have a spontaneous rhythm with pulse around 60-70, both palpated and heart sounds auscultated. She was monitored closely and an epinephrine drip was about to be hung, but after several minutes she lost her spontaneous rhythm and ACLS began a second time. Another 1 mg epinephrine was given in high-quality chest compressions commenced. She underwent another 2 minutes of chest compressions at which point a pulse check showed no spontaneous rhythm and the appearance of slow PEA was seen on the woven wood shade assembler. The code was ceased at this time and she was declared at 0838. <Jared Brown - Last Filed: 08/08/16 09:29> Date of Encounter: 08/08/16
--- NOTE | 2016-08-08 09:36 | Event Note ---
Date of Encounter: 08/08/16 Time of Encounter: 09:30 I reviewed the situation overnight reference to the patient's declining respiratory and clinical status. The patient required intubation as well as initiation of pressor agents and antibiotics for likely septic shock. This morning, the patient remains profoundly acidemic (metabolic) with a greatly elevated lactate level all suggestive of multisystem organ hypoperfusion involving multisystem organ failure. Furthermore, the patient is an urine. Family and revealed the patient to be unresponsive (no sedation) hypotensive in spite of [place]lam[place] fed a 30 mics per kilo per minute anuretic. The extremities were cool to touch cyanosis as well as ulcerations noted of the lower extremities (present time of admission yesterday). Chest exam revealed rhonchi and crackles bilaterally. Focused ultrasound evaluation of the chest disclosed preservation of left ventricular function greatly enlarged right atrium and right ventricle and enlargement of the IVC. As reviewed with the nursing and house staff this morning during technician's helper rounds, the patient will be placed on additional pressor agent (vasopressin) given persistent need for moderate doses of Levophed Steroids have also been provided in conjunction with broad-spectrum antimicrobial agents. Furthermore, if aggressive care is to be sought, the patient will require continuous renal replacement therapy in light of her severe profound metabolic acidosis anuric state. Following clinical evaluation and discussion with the patient's status, the patient developed pulseless electrical activity arrest. The staff provided appropriate cardiopulmonary resuscitation but in spite of appropriate resuscitation, there was no sustained return of spontaneous circulation hence code was is continued. For specifics regarding the resuscitation effort and events, please review other event notes. Etiology of is multisystem organ failure due to refractory septic shock, focus of infection uncertain. [facility] [phone]
--- NOTE | 2016-08-08 09:53 | Death Note ---
Discharge Sum: Summary - Date and Time Date of admission: 08/07/16 07:09 Date of : 08/08/16 Time of : 08:38 - Summary Details: Mrs. Beach was found this morning at 0812 to have a heart rate in the low 30s. Her pulse could not be palpated at that time and ACLS was started. High- quality chest compressions and manual ventilation commenced. After several rounds of ACLS pulse was detected, but was lost shortly thereafter. At this point, ACLS began again. After additional round of ACLS with no pulse palpated , no spontaneous respirations, and no cardiac sounds auscultated Ms. Beach was pronounced at 0838. - Additional Data Confirmation of as documented by pronouncing clinician: no pulse, no respirations, no heart sounds, pupils fixed and dilated Family: at bedside, contacted Additional persons at bedside: neelima, sales support advisor Attending/PCP notified?: Yes Attending physician: Dave Mckoy Was code activated?: Yes Autopsy requested?: No medical examiner notified?: No Organ bank notified?: Yes Advance directives: No Hospice patient?: No Discharge Sum: Diag - PCOD Probable Cause of : Septic shock Discharge Sum: Prov - Provider Primary care physician: Lauren Pollack MD Admitting clinician: Jared Brown Attending physician on admission: Jared Brown Consults: 08/07/16 09:32 Consult to Nutrition [CONS] Routine Comment: recent decreased appetite Consulting Provider: NUTRITION Reason for Dietary Consult: Other Consult to Yard Labor Supervisor [CONS] Routine Reason for SW Consult: family requests help with POA papers 08/07/16 13:32 Consult to Nephrology [CONS] Routine Consulting Provider: Kidney Chelsy/NAY/DOTTY/CHANO Reason for Consult: Worsened AURORA since last admission. Pt of Dr. Ramos Call Completed: Yes Consult to Wound Care [CONS] Routine Reason for Consult: Chronic lower [place] and pedal wounds, chronic venous stasis Call Completed: No Pronouncing clinician: George Mckinney
[2016-08-08 17:07] LABS: Acinetobacter baumannii by PCR ***DETECTED*** (Not Detect); Enterococcus by PCR Not Detected (Not Detect); Escherichia coli by PCR Not Detected (Not Detect); Klebsiella oxytoca by PCR Not Detected (Not Detect); Staphylococcus aureus by PCR Not Detected (Not Detect); Streptococcus agalactiae(B)PCR Not Detected (Not Detect); Streptococcus by PCR Not Detected (Not Detect); Streptococcus pneumoniae PCR Not Detected (Not Detect); Streptococcus pyogenes (A) PCR Not Detected (Not Detect); blaKPC Carbapenem-Resist Gene Not Detected (Not Detect); mecA Methicillin-Resist Gene Not Detected (Not Detect); vanA/B Vancomycin-Resist Genes Not Detected (Not Detect)
[2016-08-08 17:08] LABS: Candida albicans by PCR Not Detected (Not Detect); Candida glabrata by PCR Not Detected (Not Detect); Candida krusei by PCR Not Detected (Not Detect); Candida parapsilosis by PCR Not Detected (Not Detect); Candida tropicalis by PCR Not Detected (Not Detect); Klebsiella pneumoniae by PCR Not Detected (Not Detect); Pseudomonas aeruginosa by PCR Not Detected (Not Detect); Serratia marcescens by PCR Not Detected (Not Detect)
--- NOTE | 2016-08-08 17:54 | Electrocardiograph Report ---
[address] [place], [place] [address] Test Date: 2016-08-07 Pat Name: Marina Beach Department: 105 Room: [facility] Gender: F Exercise Physiologist Certified: : [id number] Requested By: Vinnie David Order Number: [id number] Reading MD: Pamela Cali Measurements Intervals [place] Rate: 44 P: DE: 0 QRS: 196 QRSD: 76 T: 0 QT: 176 QTc: 125 Interpretive Statements Multiple leads unsuitable for interpretation Recommend repeat tracing Electronically Signed On 08-08-2016 17:52:58 EST by Pamela Cali
[2016-08-08 20:37] LABS: Enterococcus by PCR Not Detected (Not Detect); Staphylococcus aureus by PCR Not Detected (Not Detect); Streptococcus agalactiae(B)PCR Not Detected (Not Detect); Streptococcus by PCR Not Detected (Not Detect); Streptococcus pneumoniae PCR Not Detected (Not Detect); Streptococcus pyogenes (A) PCR Not Detected (Not Detect); blaKPC Carbapenem-Resist Gene Not Detected (Not Detect); mecA Methicillin-Resist Gene Not Detected (Not Detect); vanA/B Vancomycin-Resist Genes Not Detected (Not Detect)
[2016-08-08 20:38] LABS: Acinetobacter baumannii by PCR ***DETECTED*** (Not Detect); Candida albicans by PCR Not Detected (Not Detect); Candida glabrata by PCR Not Detected (Not Detect); Candida krusei by PCR Not Detected (Not Detect); Candida parapsilosis by PCR Not Detected (Not Detect); Candida tropicalis by PCR Not Detected (Not Detect); Escherichia coli by PCR Not Detected (Not Detect); Klebsiella oxytoca by PCR Not Detected (Not Detect); Klebsiella pneumoniae by PCR Not Detected (Not Detect); Pseudomonas aeruginosa by PCR Not Detected (Not Detect); Serratia marcescens by PCR Not Detected (Not Detect)
--- NOTE | 2016-08-10 17:41 | Electrocardiograph Report ---
[address] [place] [address] Test Date: 2016-08-08 Pat Name: Marina Beach Department: 109 Room: 10 Gender: F Architectural Project Manager: : [id number] Requested By: Dave Mckoy Order Number: [id number] Reading MD: Jermain Cali Measurements Intervals [place] Rate: 39 P: 66 GA: 279 QRS: 170 QRSD: 132 T: 28 QT: 499 QTc: 424 Interpretive Statements SINUS BRADYCARDIA WITH FIRST DEGREE AV BLOCK INTRAVENTRICULAR CONDUCTION DELAY RBBB Electronically Signed On 08-10-2016 17:39:23 EST by Jermain Cali
== END 2016-08-08 08:38 | disposition expired | DRG 871 ==
LOC: EMEROO 03:38 → ICNU 07:09
PROVIDERS: ADMIT Internal Medicine; ATTEND Internal Medicine